=== PATIENT | female | born 1935 | race Caucasian/White ===

== ENCOUNTER → 2016-11-11 | Outpatient (CLI) | payer MEDICARE ==
[~2016-11-11] MED LIST: ALPR0.25 PO; AZIT-21 PO; Amlodipine Besylate PO; BENZ200C25 PO; CHOL3000 PO; CHOL40002 PO; CNDS16T PO; FERR-57 PO; FERR-84 PO; FLUT1DIS26 IH; FLUT1DIS26 INH; IRON PO; LEVO100T46 PO; LEVO150T PO; LEVO150T6 PO; LOSA100T28 PO; LOSA100T7 PO; METO25TA2 PO; NAPR220C11 PO; OMEP20CA12 PO; PARO20TA4 PO; PARO20TA57 PO; PRD20T PO; Paroxetine Hcl PO
--- NOTE | 2016-11-11 13:23 | Diagnostic Imaging Report ---
INDICATION: Difficulty breathing for the last six months, history of COPD. COMPARISON STUDY: Chest from 05/23/2015. FINDINGS: Frontal and lateral views of the chest demonstrate the lungs to be hyperinflated. Interstitial markings remain prominent. No focal infiltrates are present. Heart size and vascularity are normal. There is some calcification of the aorta. IMPRESSION: COPD with no focal findings. Dictated by: Dictated on workstation # [id number]
== END ==
LOC: RAD 10:45
PROVIDERS: ATTEND Internal Medicine Critical Care Medicine
DX: J44.9 Chronic obstructive pulmonary disease, unspecified (principal)
CPT/HCPCS: 71020

== ENCOUNTER → 2016-11-26 | Outpatient (CLI) | payer MEDICARE ==
[~2016-11-26] MED LIST changes: +RT-ALBUTEROL SULF 2.5 MG/3 ML PRE-MIX VIAL IH ONE
== END ==
LOC: RT 09:13
PROVIDERS: ATTEND Internal Medicine Critical Care Medicine
DX: J44.9 Chronic obstructive pulmonary disease, unspecified (principal)
CPT/HCPCS: 94060; 94640; 94726; 94729

== ENCOUNTER 2016-12-09 09:45 | Outpatient (RCR) | payer MEDICARE ==
[~2016-12-09 09:45] MED LIST changes: -RT-ALBUTEROL SULF 2.5 MG/3 ML PRE-MIX VIAL IH ONE
== END 2016-12-09 14:26 | disposition home or self-care (01) ==
PROVIDERS: ATTEND Internal Medicine
DX: R53.1 Weakness (principal)

== ENCOUNTER → 2017-01-06 | Outpatient (CLI) | payer MEDICARE ==
--- NOTE | 2017-01-06 17:14 | Diagnostic Imaging Report ---
Bilateral screening mammogram The current study was also evaluated with a Computer Aided Detection (CAD) system. Indication: Screening. No current complaints stated on the questionnaire. COMPARISON: 01/06/16 Findings: The breasts are composed of heterogeneously dense parenchyma which may decrease mammographic sensitivity. Benign-appearing calcifications are seen. Allowing for technique and positional differences, no suspicious change is seen. IMPRESSION: No significant change. ACR BI-RADS Category 2: Benign findings. Result letter will be mailed to the patient. Note: At least 10% of breast cancer is not imaged by mammography. Dictated by: Dictated on workstation # [id number]
== END ==
LOC: RAD 09:51
PROVIDERS: ATTEND Internal Medicine
DX: Z12.31 Encounter for screening mammogram for malignant neoplasm of breast (principal)
CPT/HCPCS: 77067

== ENCOUNTER → 2017-03-03 | Outpatient (CLI) | payer MEDICARE ==
[~2017-03-03] MED LIST changes: +ALPR0.254 PO; +CHOL40003 PO; +UMEC62.5 IH
[2017-03-03 10:28] LABS: BASOPHILS # (AUTO) 0.1 10^3/uL (0.0-0.1); BASOPHILS % (AUTO) 1 % (0-10); EOSINOPHILS # (AUTO) 0.1 10^3/uL (0.0-0.3); EOSINOPHILS % (AUTO) 2 % (0-10); LYMPHOCYTES # (AUTO) 1.8 X 10^3 (1.0-4.0); LYMPHOCYTES % (AUTO) 32 % (12-44); MEAN CORPUSCULAR HEMOGLOBIN 30 PG (25-34); MEAN CORPUSCULAR HGB CONC 33 G/DL (32-36); MEAN CORPUSCULAR VOLUME 88 FL (80-99); MEAN PLATELET VOLUME 9.3 FL (7.4-10.4); MONOCYTES # (AUTO) 0.6 X 10^3 (0.0-1.0); MONOCYTES % (AUTO) 10 % (0-12); NEUTROPHILS # (AUTO) 3.2 X 10^3 (1.8-7.8); NEUTROPHILS % (AUTO) 55 % (42-75); PLATELET COUNT 266 10^3/uL (130-400); RED BLOOD COUNT 4.38 10^6/uL (4.35-5.85); RED CELL DISTRIBUTION WIDTH 13.9 % (10.0-14.5); WHITE BLOOD COUNT 5.7 10^3/uL (4.3-11.0)
[2017-03-03 11:03] LABS: ALANINE AMINOTRANSFERASE 7 U/L (0-55); ALBUMIN 3.7 GM/DL (3.2-4.5); ANION GAP 5 MMOL/L (5-14); ASPARTATE AMINO TRANSFERASE 13 U/L (5-34); BILIRUBIN,TOTAL 0.7 MG/DL (0.1-1.0); BLOOD UREA NITROGEN 12 MG/DL (7-18); BUN/CREATININE RATIO 17; CALCIUM 9.1 MG/DL (8.5-10.1); CARBON DIOXIDE 28 MMOL/L (21-32); CHLORIDE 98 MMOL/L (98-107); CREATININE SERUM 0.71 MG/DL (0.60-1.30); GFR ESTIMATED > 60; GLUCOSE 88 MG/DL (70-105); POTASSIUM 4.6 MMOL/L (3.6-5.0); SODIUM 131 MMOL/L (135-145); TOTAL PROTEIN 6.4 GM/DL (6.4-8.2)
== END ==
LOC: ONC 10:01
PROVIDERS: ATTEND Internal Medicine Hematology & Oncology
DX: D50.9 Iron deficiency anemia, unspecified (principal)
CPT/HCPCS: 36415; 80053; 82728; 85025; 99213

== ENCOUNTER 2017-04-12 05:48 | Outpatient (CLI) | payer MEDICARE ==
[~2017-04-12] VITALS: Ht 167.6 cm; Wt 77.6 kg
[~2017-04-12 05:48] MED LIST changes: -ALPR0.254 PO; -CHOL40003 PO; -UMEC62.5 IH
[2017-04-12] MEDS ORDERED: CHOL40003 PO (12:22)
[2017-04-12] MEDS ORDERED: ALPR0.254 PO (12:22)
[2017-04-12] MEDS ORDERED: UMEC62.5 IH (12:22)
== END 2017-04-12 12:26 ==
LOC: PREOP 05:48
PROVIDERS: ATTEND Internal Medicine
DX: Z01.818 Encounter for other preprocedural examination (principal); Z12.11 Encounter for screening for malignant neoplasm of colon

== ENCOUNTER 2017-04-15 09:26 | Day surgery (SDC) | payer MEDICARE ==
--- NOTE | 2017-04-12 07:53 | HISTORY AND PHYSICAL ---
DATE OF SERVICE: 04/15/2017 DATE OF ADMISSION: 04/15/2017 HISTORY OF PRESENT ILLNESS: The patient is an 81-year-old white female presented to the office on 04/07/2017 reporting a little over 2 month history of constipation which is unusual for her. She has had to go to using Senokot twice a day after MiraLax did not work for her. She has added mineral oil to this 2 teaspoons at bedtime and with this, she is able to have a soft stool every three or four days. She has had some mild abdominal distention without abdominal pain. Prior to laxatives her stools were hard. She has not noted any bright red blood per rectum, has noticed sometimes her stools have been darker. She last accomplished colonoscopy in 2001 that revealed no abnormalities. She has had several EGDs in the past, the last in 2013 that did not reveal significant pathology. She denies weight loss or change in appetite. This is confirmed by our scales which revealed that her weight was up 1.6 pounds from 3 months ago. FAMILY HISTORY: She is not aware of any family history for colon cancer. SOCIAL HISTORY: She reports no drinking history. Past smoking history: She is a never smoker. FAMILY HISTORY: Father at age 77 of complications of alcoholism and diabetes. Mother of natural causes at the age of 91. She had one sister at age 79 of breast cancer widely metastatic. PHYSICAL EXAMINATION: GENERAL: An elderly white female who did not appear to be in acute distress. She is articulate, well kempt, slightly anxious. VITAL SIGNS: Blood pressure initially 166/84, at the end of the interview down to 148/80. HEENT: Unremarkable. Sclerae nonicteric. No evidence for pallor is noted. CHEST: Clear. CARDIOVASCULAR: Regular rate and rhythm without murmur, S3 or S4. ABDOMEN: Soft, supple without mass, organomegaly or tenderness. Bowel sounds are positive. No bruits are noted. EXTREMITIES: Reveal no cyanosis, clubbing or edema. Blood tests were reviewed. TSH was normal 3 months ago as well as calcium level. She has chronic mild hyponatremia longstanding. In February sodium was 131. The remainder of her chemistry panel was normal with a calcium level of 9.1. Liver function studies were normal and the CBC was unremarkable as well. ASSESSMENT AND PLAN: New onset constipation, no medication change with unremarkable metabolic profile and CBC. We will proceed with diagnostic colonoscopy as it has been 15 years since her last colon. Pt. scheduled on 04/15/2017. Prep instructions with the Leon-prep kit were given and questions were answered. 25 minutes of direct care time was spent by myself in evaluation and review of her past medical record. Another 15 minutes of staff time spent going over prep instructions and setting up colonoscopy. Job ID: [id number] DocumentID: [id number] Dictated Date: 04/07/2017 17:51:36 Envelope Press Operator Date: 04/07/2017 18:46:20 Dictated By: GIULIANO GARCIA MD [facility]
[~2017-04-15] VITALS: Ht 167.6 cm; Wt 77.6 kg
[~2017-04-15 09:26] MED LIST changes: +ALPR0.254 PO; +CHOL40003 PO; +UMEC62.5 IH
[2017-04-15] MEDS ORDERED: 1/2 NS IV SOLUTION 1,000 ML IV ONE (09:27)
--- OUTSIDE RECORDS SUMMARY | 2017-04-15 09:30 | XMS REPORT | Continuity of Care Document ---
Author Author [facility] Organization [facility] Address Unknown Phone Unavailable Allergies Active Description Code Type Severity Reaction Onset Reported/Identified Relationship to Patient Clinical Status Yes No Known Drug Allergies [id number] Drug Allergy Unknown N/ A 10/29/2011 Medications Problems Date Dx Coded Attending Type Code Diagnosis Diagnosed By 10/29/2011 Ot 493.92 ASTHMA, UNSPECIFIED, W (ACUTE) EXACERBAT 10/29/2011 Ot 786.05 SHORTNESS OF BREATH 04/04/2012 Ot 280.9 IRON DEFIC ANEMIA NOS 04/04/2012 Ot 536.8 STOMACH FUNCTION DIS NEC 04/04/2012 Ot 553.3 DIAPHRAGMATIC HERNIA 04/04/2012 Ot 562.10 DIVERTICULOSIS COLON (W/O MENT OF HEMORR 07/03/2014 NIHARIKA CABRERA MD Ot 244.9 HYPOTHYROIDISM NOS 07/03/2014 NIHARIKA CABRERA MD Ot 276.1 HYPOSMOLALITY 07/03/2014 NIHARIKA CABRERA MD Ot 300.00 ANXIETY STATE NOS 07/03/2014 NIHARIKA CABRERA MD Ot 311 DEPRESSIVE DISORDER NEC 07/03/2014 NIHARIKA CABRERA MD Ot 401.0 MALIGNANT HYPERTENSION 07/03/2014 NIHARIKA CABRERA MD Ot 493.20 CHRONIC OBSTRUCTIVE ASTHMA, NOS 07/03/2014 NIHARIKA CABRERA MD Ot 530.81 ESOPHAGEAL REFLUX 07/03/2014 NIHARIKA CABRERA MD Ot 535.51 UNSPEC GASTRITIS GASTRODUODENITIS, W/ 07/03/2014 NIHARIKA CABRERA MD Ot 564.00 UNSPEC CONSTIPATION 07/03/2014 NIHARIKA CABRERA MD Ot 716.90 ARTHROPATHY NOS-UNSPEC 07/03/2014 NIHARIKA CABRERA MD Ot 780.60 FEVER, UNSPECIFIED 07/03/2014 NIHARIKA CABRERA MD Ot 785.0 TACHYCARDIA NOS 07/03/2014 SANDNESS MD, NIHARIKA M Ot E935.6 ADV EFF ANTIRHEUMATICS 07/03/2014 RICK PORTILLO, NIHARIKA M Ot V12.71 PERSONAL HISTORY OF PEPTIC ULCER DISEASE 07/31/2014 RICK PORTILLO, NIHARIKA M Ot 276.1 07/31/2014 RICK PORTILLO, NIHARIKA M Ot 401.9 07/31/2014 RICK PORTILLO, NIHARIKA M Ot 428.0 08/13/2014 RICK PORTILLO, NIHARIKA M Ot 276.1 08/13/2014 RICK PORTILLO, NIHARIKA M Ot 401.9 08/13/2014 RICK PORTILLO, NIHARIKA M Ot 428.0 08/24/2014 RICK PORTILLO, NIHARIKA M Ot 276.0 08/24/2014 RICK PORTILLO, NIHARIKA M Ot 401.9 08/24/2014 RICK PORTILLO, NIHARIKA M Ot 428.0 10/21/2014 RICK PORTILLO, NIHARIKA M Ot 276.0 10/21/2014 RICK PORTILLO, NIHARIKA M Ot 401.9 10/21/2014 RICK PORTILLO, NIHARIKA M Ot 428.0 01/22/2015 MEIR PORTILLO, ILANA A Ot V76.12 01/31/2015 MEIR PORTILLO, ILANA Olivas Ot V76.12 01/31/2015 NWAGWU, ISIDORE O FUND ACCOUNTING MANAGER Ot 244.9 01/31/2015 NWAGWU, ISIDORE O FUND ACCOUNTING MANAGER Ot 401.9 01/31/2015 NWAGWU, ISIDORE O FUND ACCOUNTING MANAGER Ot 443.9 01/31/2015 NWAGWU, ISIDORE O FUND ACCOUNTING MANAGER Ot 459.81 01/31/2015 NWAGWU, ISIDORE O FUND ACCOUNTING MANAGER Ot 496 02/06/2015 NWAGWU, ISIDORE O FUND ACCOUNTING MANAGER Ot 244.9 02/06/2015 NWAGWU, ISIDORE O FUND ACCOUNTING MANAGER Ot 401.9 02/06/2015 NWAGWU, ISIDORE O FUND ACCOUNTING MANAGER Ot 443.9 02/06/2015 NWAGWU, ISIDORE O FUND ACCOUNTING MANAGER Ot 459.81 02/06/2015 NWAGWU, ISIDORE O FUND ACCOUNTING MANAGER Ot 496 02/14/2015 JOSE PORTILLO, GIULIANO Maxwell Ot 459.81 02/14/2015 JOSE PORTILLO, GIULIANO Maxwell Ot 782.3 02/14/2015 GIULIANO GARCIA MD Ot V57.21 02/21/2015 NWAGWU, ISIDORE O FUND ACCOUNTING MANAGER Ot 244.9 02/21/2015 NWAGWU, ISIDORE O FUND ACCOUNTING MANAGER Ot 401.9 02/21/2015 NWAGWU, ISIDORE O FUND ACCOUNTING MANAGER Ot 443.9 02/21/2015 NWAGWU, ISIDORE O FUND ACCOUNTING MANAGER Ot 459.81 02/21/2015 NWAGWU, ISIDORE O FUND ACCOUNTING MANAGER Ot 496 03/11/2015 NUNO MUNROEP Ot 174.9 03/12/2015 PAULIE KINNEY N Ot 174.9 03/14/2015 JOSE PORTILLO, GIULIANO Maxwell Ot 459.81 VENOUS INSUFFICIENCY NOS 03/14/2015 GIULIANO GARCIA MD Ot 782.3 EDEMA 03/14/2015 GIULIANO GARCIA MD Ot V57.21 ENCOUNTER FOR OCCUPATIONAL THERAPY 03/26/2015 PAULIE KINNEY Ot 174.9 04/17/2015 PAULIE KINNEY Ot 174.9 05/24/2015 GIULIANO GARCIA MD Ot E03.9 HYPOTHYROIDISM, UNSPECIFIED 05/24/2015 GIULIANO GARCIA MD Ot E22.2 SYNDROME OF INAPPROPRIATE SECRETION OF A 05/24/2015 GIULIANO GARCIA MD Ot E86.0 DEHYDRATION 05/24/2015 GIULIANO GARCIA MD Ot F41.1 GENERALIZED ANXIETY DISORDER 05/24/2015 GIULIANO GARCIA MD Ot I10 ESSENTIAL (PRIMARY) HYPERTENSION 05/24/2015 GIULIANO GARCIA MD Ot K21.9 GASTRO-ESOPHAGEAL REFLUX DISEASE WITHOUT 05/24/2015 GIULIANO GARCIA MD Ot T43.205A ADVERSE EFFECT OF UNSPECIFIED ANTIDEPRES 01/08/2016 GIULIANO GARCIA MD Ot Z12.31 ENCNTR SCREEN MAMMOGRAM FOR MALIGNANT NE 01/09/2016 GIULIANO GARCIA MD Ot Z12.31 ENCNTR SCREEN MAMMOGRAM FOR MALIGNANT NE 01/28/2016 GIULIANO GARCIA MD Ot Z12.31 ENCNTR SCREEN MAMMOGRAM FOR MALIGNANT NE 03/08/2016 NUNO MUNROEP Ot D50.9 IRON DEFICIENCY ANEMIA, UNSPECIFIED 03/26/2016 NUNO MUNROEP Ot D50.9 IRON DEFICIENCY ANEMIA, UNSPECIFIED 04/05/2016 NUNO MUNROE 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 SYSTEMS Ot D50.9 IRON DEFICIENCY ANEMIA, UNSPECIFIED 11/15/2016 JOSE PORTILLO, GIULIANO Maxwell Ot R53.1 WEAKNESS 11/24/2016 MEIR PORTILLO, ILANA Olivas Ot V76.12 OTH SCREEN MAMMO-MALIGN NEOPLASM OF [place] 11/24/2016 NWAGWU, ISIDORE O FUND ACCOUNTING MANAGER Ot 244.9 HYPOTHYROIDISM NOS 11/24/2016 NWAGWU, ISIDORE O FUND ACCOUNTING MANAGER Ot 401.9 HYPERTENSION NOS 11/24/2016 NWAGWU, ISIDORE O FUND ACCOUNTING MANAGER Ot 443.9 PERIPH VASCULAR DIS NOS 11/24/2016 NWAGWU, ISIDORE O FUND ACCOUNTING MANAGER Ot 459.81 VENOUS INSUFFICIENCY NOS 11/24/2016 NWAGWU, ISIDORE O FUND ACCOUNTING MANAGER Ot 496 CHR AIRWAY OBSTRUCT NEC 11/24/2016 GREGORIAPAULIE CHAPA [place] Ot 174.9 MALIGN NEOPL BREAST NOS 11/24/2016 JOSE PORTILLO, GIULIANO Maxwell Ot Z12.31 ENCNTR SCREEN MAMMOGRAM FOR MALIGNANT NE 11/24/2016 NUNO MUNROE 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 Ot D50.9 IRON DEFICIENCY ANEMIA, UNSPECIFIED 11/24/2016 JOSE PORTILLO, GIULIANO Maxwell Ot R53.1 WEAKNESS 11/24/2016 YANN ARRIAZA DO Ot J44.9 CHRONIC OBSTRUCTIVE PULMONARY DISEASE, U 11/25/2016 Ot 233.0 11/25/2016 Ot 244.9 11/25/2016 Ot 733.90 11/25/2016 Ot V58.69 11/25/2016 Ot 233.0 CA IN SITU BREAST 11/25/2016 Ot V15.3 HX OF IRRADIATION 11/25/2016 Ot V45.89 POSTSURGICAL STATES NEC 11/25/2016 Ot V76.11 SCRN MAMMO-HIGH RISK PT, MALIGNANT NEOPL 11/25/2016 Ot 276.1 HYPOSMOLALITY 11/25/2016 Ot 285.9 ANEMIA NOS 11/25/2016 Ot 530.3 ESOPHAGEAL STRICTURE 11/25/2016 Ot 530.81 ESOPHAGEAL REFLUX 11/25/2016 Ot 585.3 CHRONIC KIDNEY DISEASE, STAGE III (MODER 11/25/2016 Ot V10.3 HX OF BREAST MALIGNANCY 11/25/2016 Ot V67.1 RADIOTHERAPY FOLLOW-UP 11/25/2016 Ot 280.9 IRON DEFIC ANEMIA NOS 11/25/2016 Ot 536.8 STOMACH FUNCTION DIS NEC 11/25/2016 Ot V72.84 EXAM PRE-OPERATIVE NOS 11/25/2016 Ot 782.3 EDEMA 11/25/2016 NIHARIKA CABRERA MD Ot V76.12 OTH SCREEN MAMMO-MALIGN NEOPLASM OF [place] 11/25/2016 PAULIE KINNEY N Ot 174.9 MALIGN NEOPL BREAST NOS 11/25/2016 PAULIE KINNEY N Ot 285.9 ANEMIA NOS 11/25/2016 NIHARIKA CABRERA MD Ot 272.4 HYPERLIPIDEMIA NEC/NOS 11/25/2016 NIHARIKA CABRERA MD Ot 790.29 OTHER ABNORMAL GLUCOSE 11/25/2016 PAULIE KINNEY N Ot 174.9 MALIGN NEOPL BREAST NOS 11/25/2016 GREGORIA PAULIE N Ot 285.9 ANEMIA NOS 11/25/2016 NIHARIKA CABRERA MD Ot V76.12 OTH SCREEN MAMMO-MALIGN NEOPLASM OF [place] 11/25/2016 NUNO MUNROE 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 SYSTEMS Ot 174.9 MALIGN NEOPL BREAST NOS 11/25/2016 NIHARIKA CABRERA MD Ot 276.1 HYPOSMOLALITY 11/25/2016 NIHARIKA CABRERA MD Ot 401.9 HYPERTENSION NOS 11/25/2016 NIHARIKA CABRERA MD Ot 428.0 CONGESTIVE HEART FAILURE NOS 11/25/2016 NIHARIKA CABRERA MD Ot 276.1 HYPOSMOLALITY 11/25/2016 NIHARIKA CABRERA MD Ot 401.9 HYPERTENSION NOS 11/25/2016 NIHARIKA CABRERA MD Ot 428.0 CONGESTIVE HEART FAILURE NOS 11/25/2016 NIHARIKA CABRERA MD Ot 276.0 HYPEROSMOLALITY 11/25/2016 NIHARIKA CABRERA MD Ot 401.9 HYPERTENSION NOS 11/25/2016 NIHARIKA CABRERA MD Ot 428.0 CONGESTIVE HEART FAILURE NOS 11/25/2016 ILANA WORLEY MD Ot V76.12 OTH SCREEN MAMMO-MALIGN NEOPLASM OF [place] 11/25/2016 NWAGWU, ISIDORE O FUND ACCOUNTING MANAGER Ot 244.9 HYPOTHYROIDISM NOS 11/25/2016 NWMAYOWAleshia ISIDORE O FUND ACCOUNTING MANAGER Ot 401.9 HYPERTENSION NOS 11/25/2016 NWAGWU, ISIDORE O FUND ACCOUNTING MANAGER Ot 443.9 PERIPH VASCULAR DIS NOS 11/25/2016 NWAGWU, ISIDORE O FUND ACCOUNTING MANAGER Ot 459.81 VENOUS INSUFFICIENCY NOS 11/25/2016 NWAGWU, ISIDORE O FUND ACCOUNTING MANAGER Ot 496 CHR AIRWAY OBSTRUCT NEC 11/25/2016 PAULIE KINNEY Ot 174.9 MALIGN NEOPL BREAST NOS 11/25/2016 JOSE PORTILLO, GIULIANO Maxwell Ot Z12.31 ENCNTR SCREEN MAMMOGRAM FOR MALIGNANT NE 11/25/2016 NUNO MUNROE Jorgito 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 SYSTEMS Ot D50.9 IRON DEFICIENCY ANEMIA, UNSPECIFIED 11/25/2016 GIULIANO GARCIA MD Ot R53.1 WEAKNESS 11/25/2016 GIULIANO GARCIA MD Ot Z12.31 ENCNTR SCREEN MAMMOGRAM FOR MALIGNANT NE 11/25/2016 YANN ARRIAZA DO Ot J44.9 CHRONIC OBSTRUCTIVE PULMONARY DISEASE, U 11/26/2016 Ot 233.0 11/26/2016 Ot 244.9 11/26/2016 Ot 733.90 11/26/2016 Ot V58.69 11/26/2016 Ot 233.0 CA IN SITU BREAST 11/26/2016 Ot V15.3 HX OF IRRADIATION 11/26/2016 Ot V45.89 POSTSURGICAL STATES NEC 11/26/2016 Ot V76.11 SCRN MAMMO-HIGH RISK PT, MALIGNANT NEOPL 11/26/2016 Ot 276.1 HYPOSMOLALITY 11/26/2016 Ot 285.9 ANEMIA NOS 11/26/2016 Ot 530.3 ESOPHAGEAL STRICTURE 11/26/2016 Ot 530.81 ESOPHAGEAL REFLUX 11/26/2016 Ot 585.3 CHRONIC KIDNEY DISEASE, STAGE III (MODER 11/26/2016 Ot V10.3 HX OF BREAST MALIGNANCY 11/26/2016 Ot V67.1 RADIOTHERAPY FOLLOW-UP 11/26/2016 Ot 280.9 IRON DEFIC ANEMIA NOS 11/26/2016 Ot 536.8 STOMACH FUNCTION DIS NEC 11/26/2016 Ot V72.84 EXAM PRE-OPERATIVE NOS 11/26/2016 Ot 782.3 EDEMA 11/26/2016 RICK PORTILLO, NIHARIKA Cota Ot V76.12 OTH SCREEN MAMMO-MALIGN NEOPLASM OF [place] 11/26/2016 GREGORIA, BOBAN N Ot 174.9 MALIGN NEOPL BREAST NOS 11/26/2016 PAULIE KINNEY N Ot 285.9 ANEMIA NOS 11/26/2016 NIHARIKA CABRERA MD Ot 272.4 HYPERLIPIDEMIA NEC/NOS 11/26/2016 NIHARIKA CABRERA MD Ot 790.29 OTHER ABNORMAL GLUCOSE 11/26/2016 PAULIE KINNEY N Ot 174.9 MALIGN NEOPL BREAST NOS 11/26/2016 PAULIE KINNEY N Ot 285.9 ANEMIA NOS 11/26/2016 NIHARIKA CABRERA MD Ot V76.12 OTH SCREEN MAMMO-MALIGN NEOPLASM OF [place] 11/26/2016 MUNROENUNO Bull Jorgito 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S Ot 174.9 MALIGN NEOPL BREAST NOS 11/26/2016 NIHARIKA CABRERA MD Ot 276.1 HYPOSMOLALITY 11/26/2016 NIHARIKA CABRERA MD Ot 401.9 HYPERTENSION NOS 11/26/2016 NIHARIKA CABRERA MD Ot 428.0 CONGESTIVE HEART FAILURE NOS 11/26/2016 NIHARIKA CABRERA MD Ot 276.1 HYPOSMOLALITY 11/26/2016 NIHARIKA CABRERA MD Ot 401.9 HYPERTENSION NOS 11/26/2016 NIHARIKA CABRERA MD Ot 428.0 CONGESTIVE HEART FAILURE NOS 11/26/2016 NIHARIKA CABRERA MD Ot 276.0 HYPEROSMOLALITY 11/26/2016 NIHARIKA CABRERA MD Ot 401.9 HYPERTENSION NOS 11/26/2016 NIHARIKA CABRERA MD Ot 428.0 CONGESTIVE HEART FAILURE NOS 11/26/2016 MEIR PORTILLO, ILANA Olivas Ot V76.12 OTH SCREEN MAMMO-MALIGN NEOPLASM OF [place]ER 11/26/2016 NWAGWU, ISIDORE O FUND ACCOUNTING MANAGER Ot 244.9 HYPOTHYROIDISM NOS 11/26/2016 NWAGWU, ISIDORE O FUND ACCOUNTING MANAGER Ot 401.9 HYPERTENSION NOS 11/26/2016 NWAGWU, ISIDORE O FUND ACCOUNTING MANAGER Ot 443.9 PERIPH VASCULAR DIS NOS 11/26/2016 NWAGWU, ISIDORE O FUND ACCOUNTING MANAGER Ot 459.81 VENOUS INSUFFICIENCY NOS 11/26/2016 NWAGWU, ISIDORE O FUND ACCOUNTING MANAGER Ot 496 CHR AIRWAY OBSTRUCT NEC 11/26/2016 DELIA KINNEYRIK N Ot 174.9 MALIGN NEOPL BREAST NOS 11/26/2016 GIULIANO GARCIA MD Ot Z12.31 ENCNTR SCREEN MAMMOGRAM FOR MALIGNANT NE 11/26/2016 NUNO MUNROE Ot D50.9 IRON DEFICIENCY ANEMIA, UNSPECIFIED 11/26/2016 JOSE PORTILLO, GIULIANO Maxwell Ot R53.1 WEAKNESS 11/26/2016 GIULIANO GARCIA MD Ot Z12.31 ENCNTR SCREEN MAMMOGRAM FOR MALIGNANT NE 11/26/2016 ARSALAN DOPRUDENCIOYANN M Ot J44.9 CHRONIC OBSTRUCTIVE PULMONARY DISEASE, U 11/29/2016 ARSALAN DO, YANN M Ot J44.9 CHRONIC OBSTRUCTIVE PULMONARY DISEASE, U 11/29/2016 ARSALAN DO, YANN M Ot J44.9 CHRONIC OBSTRUCTIVE PULMONARY DISEASE, U 11/29/2016 ARSALAN DOPRUDENCIOYANN M Ot J44.9 CHRONIC OBSTRUCTIVE PULMONARY DISEASE, U 11/29/2016 ARSALAN DO, YANN M Ot J44.9 CHRONIC OBSTRUCTIVE PULMONARY DISEASE, U 12/09/2016 GIULIANO GARCIA MD Ot R53.1 WEAKNESS 12/23/2016 ARSALAN DOPRUDENCIOYANN M Ot J44.9 CHRONIC OBSTRUCTIVE PULMONARY DISEASE, U 12/27/2016 ARSALAN DO, YANN M Ot J44.9 CHRONIC OBSTRUCTIVE PULMONARY DISEASE, U 12/30/2016 ARSALAN DO, YANN M Ot J44.9 CHRONIC OBSTRUCTIVE PULMONARY DISEASE, U 01/06/2017 GIULIANO GARCIA MD Ot Z12.31 ENCNTR SCREEN MAMMOGRAM FOR MALIGNANT NE 01/06/2017 GIULIANO GARCIA MD Ot Z12.31 ENCNTR SCREEN MAMMOGRAM FOR MALIGNANT NE 01/06/2017 GIULIANO GARCIA MD Ot Z12.31 ENCNTR SCREEN MAMMOGRAM FOR MALIGNANT NE 01/10/2017 YANN ARRIAZA DO M Ot J44.9 CHRONIC OBSTRUCTIVE PULMONARY DISEASE, U 01/12/2017 GIULIANO GARCIA MD Ot Z12.31 ENCNTR SCREEN MAMMOGRAM FOR MALIGNANT NE 01/13/2017 YANN ARRIAZA DO M Ot J44.9 CHRONIC OBSTRUCTIVE PULMONARY DISEASE, U 01/27/2017 GIULIANO GARCIA MD Ot Z12.31 ENCNTR SCREEN MAMMOGRAM FOR MALIGNANT NE 03/04/2017 PAULIE KINNEY Ot D50.9 IRON DEFICIENCY ANEMIA, UNSPECIFIED 03/23/2017 PAULIE KINNEY Ot D50.9 IRON DEFICIENCY ANEMIA, UNSPECIFIED 04/08/2017 PAULIE KINNEY Ot D50.9 IRON DEFICIENCY ANEMIA, UNSPECIFIED 04/12/2017 GIULIANO GARCIA MD Ot Z01.818 ENCOUNTER FOR OTHER PREPROCEDURAL EXAMIN 04/12/2017 GIULIANO GARCIA MD Ot Z12.11 ENCOUNTER FOR SCREENING FOR MALIGNANT NE Procedures Code Description Performed By Performed On 45.16 ESOPHAGOGASTRODUODENOSCOPY [EGD] W/CLOSE 06/26/2014 Results Encounters ACCT No. Visit Date/Time Discharge Status Pt. Type Provider Facility Loc./Unit Complaint [id number] 04/12/2017 05:48:00 2016 12:26:00 DIS Outpatient GIULIANO GARCIA MD [facility] PREOP DIAGNOSTIC COLONOSCOPY [id number] 03/03/2017 10:01:00 2016 23:59:59 CLS Outpatient PAULIE KINNEY [facility] ONC [id number] 01/06/2017 09:51:00 2016 23:59:59 CLS Outpatient GIULIANO GARCIA MD [facility] RAD SCREENING [id number] 12/09/2016 09:45:00 2016 14:26:00 DIS Outpatient GIULIANO GARCIA MD [facility] REHAB DECONDITIONING [id number] 12/06/2016 08:15:00 2016 23:59:59 CLS Preadmit GIULIANO GARCIA MD [facility] PULM COPD,DECONDTIONING [id number] 11/26/2016 09:13:00 2016 23:59:59 CLS Outpatient YANN ARRIAZA DO [facility] RT J44.9,R06.00 [id number] 11/11/2016 10:45:00 2016 23:59:59 CLS Outpatient YANN ARRIAZA DO [facility] RAD COPD,DYSPNEA [id number] 03/04/2016 09:34:00 2015 23:59:59 CLS Outpatient NUNO MUNROE [facility] ONC [id number] 01/06/2016 09:43:00 2015 23:59:59 CLS Outpatient GIULIANO GARCIA MD [facility] RAD SCREENING [id number] 05/23/2015 12:27:00 2014 12:53:00 DIS Inpatient GIULIANO GARCIA MD [facility] 4TH SYMPTOMATIC HYPONATREMIA [id number] 02/25/2015 08:43:00 2014 12:03:00 DIS Outpatient GIULIANO GARCIA MD [facility] REHAB VENOUS INSUFFICIENCY W LE EDEMA; COMPRESSION STOCK [id number] 03/06/2015 09:46:00 2014 23:59:59 CLS Outpatient DELIA KINNEYRIK Figueroa [facility] ONC [id number] 01/13/2015 12:58:00 2014 23:59:59 CLS Outpatient NWAGWULAURIE FUND ACCOUNTING MANAGER [facility] RAD PAD,COPD,HTN,HYPOTHYROID [id number] 01/02/2015 08:49:00 2014 23:59:59 CLS Outpatient ILANA WORLEY MD [facility] RAD SCREENING [id number] 07/22/2014 11:40:00 2013 23:59:59 CLS Outpatient NIHARIKA CABRERA MD [facility] HYPONATREMIA, HTN, CHF [id number] 07/15/2014 13:25:00 2013 23:59:59 CLS Outpatient NIHARIKA CABRERA MD [facility] YPONATREMIA, HTN, CHF [id number] 07/08/2014 09:30:00 2013 23:59:59 CLS Outpatient NIHARIKA CABRERA MD [facility] HYPONATREMIA, HTN, CHF [id number] 06/26/2014 10:36:00 2013 18:08:00 DIS Inpatient NIHARIKA CABRERA MD [facility] 4TH SYNCOPE HYPONATREMIA ABD PAIN NAUSEA [id number] 03/07/2014 10:16:00 2013 23:59:59 CLS Outpatient NUNO MUNROE [facility] ONC [id number] 12/31/2013 10:26:00 2013 23:59:59 CLS Outpatient NIHARIKA CABRERA MD [facility] RAD ROUTINE [id number] 04/19/2013 11:00:00 2012 23:59:59 CLS Outpatient PAULIE KINNEY [facility] ONC LAB [id number] 03/08/2013 10:35:00 2012 23:59:59 CLS Outpatient NIHARIKA CABRERA MD [facility] LAB [id number] 03/08/2013 10:17:00 2012 23:59:59 CLS Outpatient PAULIE KINNEY [facility] ONC [id number] 12/28/2012 10:47:00 2012 23:59:59 CLS Outpatient NIHARIKA CABRERA MD [facility] RAD SCREENING [id number] 04/15/2017 11:15:00 PEN Anali GARCIA MD, GIULIANO Maxwell [facility] ENDO DIAGNOSTIC [id number] 11/25/2016 12:05:00 Document Registration [id number] 10/09/2012 11:33:00 Document Registration [id number] 04/04/2012 07:26:00 Document Registration [id number] 04/03/2012 11:53:00 Document Registration [id number] 03/09/2012 09:38:00 Document Registration [id number] 12/27/2011 10:35:00 Document Registration [id number] 10/29/2011 09:14:00 Document Registration [id number] 05/23/2008 00:00:00 Document Registration
[2017-04-15] MEDS ORDERED: 1/2 NS IV SOLUTION 1,000 ML IV STA (09:35)
[2017-04-15 09:40] VITALS: BP 153/81
[2017-04-15] MEDS ORDERED: LIDOCAINE JELLY 2% (XYLOCAINE) 5 ML TUBE MM PRN (09:45)
--- NOTE | 2017-04-15 10:19 | Pre-Op Note & Conscious Sedat ---
Pre-Operative Progress Note H&P Reviewed The H&P was reviewed, patient examined and no changes noted. Date H&P Reviewed: Apr 15, 2017 Time H&P Reviewed: 10:19 Conscious Sedation Pre-Proced ASA Class: 2 Airway Mallampati Classification: (jena appropriate class) I. II. III, IV Lungs Heart ASA score ASA 1: a normal healthy patient ASA 2: a patient with a mild systemic disease (mid diabetes, controlled hypertension, obesity ASA 3: a patient with a severe systemic disease that limits activity (angina , COPD, prior Myocardial infarction) ASA 4: a patient with an incapacitating disease that is a constant threat to life (CHF, renal failure) ASA 5: a moribund patient not expected to survive 24 hrs. (ruptured aneurysm) ASA 6: a declared brain patient whose organs are being harvested. For emergent operations, add the letter E after the classification Grade 3 Sedation Plan: Analgesia, Amnesia, Plan communicated to team members, Discussed options with patient/fam, Discussed risks with patient/fam Note The patient is an appropriate candidate to undergo the planned procedure, sedation, and anesthesia. The patient immediately re-assessed prior to indication. GIULIANO GARCIA MD Apr 15, 2017 10:19
[2017-04-15] MEDS ORDERED: fentaNYL INJECTION 100 MCG/2 ML AMP ONE (10:51)
[2017-04-15] MEDS ORDERED: LIDOCAINE JELLY 2% (XYLOCAINE) 5 ML TUBE ONE (10:51)
[2017-04-15] MEDS ORDERED: MIDAZOLAM 2 MG/2 ML (VERSED) VIAL ONE ×2 (10:52)
[2017-04-15] MEDS: fentaNYL INJECTION 100 MCG/2 ML AMP IVP PRN ×2 (11:00→11:03)
[2017-04-15] MEDS: MIDAZOLAM 2 MG/2 ML (VERSED) VIAL IVP PRN ×2 (11:01→11:04)
[2017-04-15 11:50] VITALS: BP 155/81
[2017-04-15 12:15] VITALS: BP 157/78
[2017-04-15 12:35] VITALS: BP 157/78
--- NOTE | 2017-04-16 17:29 | OPERATIVE REPORT ---
DATE OF SERVICE: 04/15/2017 PROCEDURE: Colonoscopy. INDICATION: Colonoscopy is performed for evaluation of new onset constipation and left lower quadrant abdominal pain. DESCRIPTION OF PROCEDURE: The patient was placed in the left lateral decubitus position. Prior to undergoing colonoscopy, digital rectal evaluation was performed. Anal sphincter tone was normal and the perianal reflex was intact. No abnormalities noted on digital inspection of the anal canal or distal rectal vault. The colonoscope was then inserted into the rectum under direct visualization and advanced to the cecum. The cecum was identified by identification of the ileocecal valve and cecal strap. Photographic documentation was obtained. Careful inspection was made as the colonoscope was withdrawn. FINDINGS: There was no evidence for internal or external hemorrhoids and the rectum was unremarkable. Several small sigmoid diverticulum were present without evidence for diverticulitis. No other sigmoid colonic abnormalities were appreciated. The descending colon, splenic flexure, transverse colon, hepatic flexure, ascending colon and cecum were unremarkable. ASSESSMENT: Mild diverticular disease confined to the sigmoid colon was present with no evidence for diverticulitis. This is an otherwise normal colonoscopy to the cecum. The patient did not have an irritable bowel type response to air insufflation or colonic manipulation. For treatment at this point, advised she double her mineral oil to a teaspoon twice a day and take MiraLax b.i.d. If this is not effective, we will discuss Linzess if it is affordable on her health care plan. Job ID: [id number] DocumentID: [id number] Dictated Date: 04/16/2017 15:12:57 Clinical Professor Date: 04/16/2017 17:29:01 Dictated By: GIULIANO GARCIA MD
== END 2017-04-15 12:35 | disposition home or self-care (01) ==
LOC: ENDO 09:26
PROVIDERS: ATTEND Internal Medicine
DX: K57.30 Diverticulosis of large intestine without perforation or abscess without bleeding (principal); K59.00 Constipation, unspecified; R10.32 Left lower quadrant pain

== ENCOUNTER → 2018-01-12 | Outpatient (CLI) | payer MEDICARE ==
--- NOTE | 2018-01-12 10:34 | Diagnostic Imaging Report ---
INDICATION: Routine screening. Comparison is made with prior study from 01/06/2017 and 01/06/2016. 2-D and 3-D bilateral screening mammography was performed with CAD. Both breasts are heterogeneously dense, limiting the sensitivity of mammography. Benign-appearing parenchymal and vascular calcifications are identified bilaterally. No dominant mass or malignant appearing microcalcifications are seen. The axillae are unremarkable. IMPRESSION: BI-RADS category 2 No mammographic features suspicious for malignancy are identified. ACR BI-RADS Category 2: Benign findings. Result letter will be mailed to the patient. Note: At least 10% of breast cancer is not imaged by mammography. Dictated by: Dictated on workstation # [id number]
== END ==
LOC: RAD 08:39
PROVIDERS: ATTEND Internal Medicine
DX: Z12.31 Encounter for screening mammogram for malignant neoplasm of breast (principal)
CPT/HCPCS: 77067

== ENCOUNTER → 2018-03-02 | Outpatient (CLI) | payer MEDICARE ==
[2018-03-02 09:53] LABS: BASOPHILS % (AUTO) 0 % (0-10); EOSINOPHILS # (AUTO) 0.1 10^3/uL (0.0-0.3); EOSINOPHILS % (AUTO) 2 % (0-10); HEMATOCRIT 38 % (35-52); HEMOGLOBIN 12.7 G/DL (11.5-16.0); LYMPHOCYTES # (AUTO) 1.4 X 10^3 (1.0-4.0); LYMPHOCYTES % (AUTO) 31 % (12-44); MEAN CORPUSCULAR HEMOGLOBIN 29 PG (25-34); MEAN CORPUSCULAR HGB CONC 34 G/DL (32-36); MEAN CORPUSCULAR VOLUME 87 FL (80-99); MEAN PLATELET VOLUME 9.9 FL (7.4-10.4); MONOCYTES # (AUTO) 0.5 X 10^3 (0.0-1.0); MONOCYTES % (AUTO) 12 % (0-12); NEUTROPHILS # (AUTO) 2.6 X 10^3 (1.8-7.8); NEUTROPHILS % (AUTO) 55 % (42-75); PLATELET COUNT 224 10^3/uL (130-400); RED BLOOD COUNT 4.33 10^6/uL (4.35-5.85); RED CELL DISTRIBUTION WIDTH 13.6 % (10.0-14.5); WHITE BLOOD COUNT 4.6 10^3/uL (4.3-11.0)
[2018-03-02 10:14] LABS: ALANINE AMINOTRANSFERASE 11 U/L (0-55); ALBUMIN 3.6 GM/DL (3.2-4.5); ALKALINE PHOSPHATASE 72 U/L (40-136); BILIRUBIN,TOTAL 0.6 MG/DL (0.1-1.0); BUN/CREATININE RATIO 17; CARBON DIOXIDE 24 MMOL/L (21-32); CHLORIDE 98 MMOL/L (98-107); CREATININE SERUM 0.71 MG/DL (0.60-1.30); GFR ESTIMATED > 60; GLUCOSE 97 MG/DL (70-105); POTASSIUM 4.6 MMOL/L (3.6-5.0); SODIUM 129 MMOL/L (135-145); TOTAL PROTEIN 6.2 GM/DL (6.4-8.2)
== END ==
LOC: ONC 09:14
PROVIDERS: ATTEND Internal Medicine Hematology & Oncology
DX: D50.9 Iron deficiency anemia, unspecified (principal); Z86.000 Personal history of in-situ neoplasm of breast
CPT/HCPCS: 80053; 82728; 85025; 99213

== ENCOUNTER → 2019-01-16 | Outpatient (CLI) | payer MEDICARE ==
[~2019-01-16] MED LIST changes: -LOSA100T28 PO; +LOSA100T57 PO
--- NOTE | 2019-01-16 15:35 | Diagnostic Imaging Report ---
INDICATION: Motion artifact. TECHNIQUE: The patient returned and CC and MLO views of the right breast were obtained due to motion artifact. FINDINGS: Scattered parenchymal density throughout the right breast is seen. There are benign parenchymal and vascular calcifications identified. No mass or malignant appearing microcalcifications are seen. IMPRESSION: No mammographic features suspicious for malignancy are identified. ACR BI-RADS Category 2: Benign findings. Result letter will be mailed to the patient. Note: At least 10% of breast cancer is not imaged by mammography. Dictated by: Dictated on workstation # [id number]
== END ==
LOC: RAD 13:54
PROVIDERS: ATTEND Internal Medicine
DX: Z12.31 Encounter for screening mammogram for malignant neoplasm of breast (principal)

== ENCOUNTER → 2019-03-01 | Outpatient (CLI) | payer MEDICARE | LOC: ONC 09:02 | PROVIDERS: ATTEND Internal Medicine Hematology & Oncology | DX: D50.9 Iron deficiency anemia, unspecified (principal); Z86.000 Personal history of in-situ neoplasm of breast | CPT/HCPCS: 99213 ==

== ENCOUNTER → 2020-03-17 | Outpatient (CLI) | payer MEDICARE ==
[2020-03-17 09:06] LABS: BASOPHILS % (AUTO) 0 % (0-10); EOSINOPHILS # (AUTO) 0.1 10^3/uL (0.0-0.3); EOSINOPHILS % (AUTO) 1 % (0-10); HEMATOCRIT 39 % (35-52); HEMOGLOBIN 13.1 G/DL (11.5-16.0); LYMPHOCYTES # (AUTO) 1.9 X 10^3 (1.0-4.0); LYMPHOCYTES % (AUTO) 34 % (12-44); MEAN CORPUSCULAR HEMOGLOBIN 30 PG (25-34); MEAN CORPUSCULAR HGB CONC 34 G/DL (32-36); MEAN CORPUSCULAR VOLUME 90 FL (80-99); MONOCYTES # (AUTO) 0.5 X 10^3 (0.0-1.0); MONOCYTES % (AUTO) 9 % (0-12); NEUTROPHILS % (AUTO) 55 % (42-75); PLATELET COUNT 254 10^3/uL (130-400); RED CELL DISTRIBUTION WIDTH 13.7 % (10.0-14.5); WHITE BLOOD COUNT 5.5 10^3/uL (4.3-11.0)
[2020-03-17 09:29] LABS: ALANINE AMINOTRANSFERASE 9 U/L (0-55); ALBUMIN 3.8 GM/DL (3.2-4.5); ALKALINE PHOSPHATASE 88 U/L (40-136); BILIRUBIN,TOTAL 0.7 MG/DL (0.1-1.0); BUN/CREATININE RATIO 14; CALCIUM 8.9 MG/DL (8.5-10.1); CARBON DIOXIDE 25 MMOL/L (21-32); CHLORIDE 95 MMOL/L (98-107); CREATININE SERUM 0.69 MG/DL (0.60-1.30); GFR ESTIMATED > 60; GLUCOSE 101 MG/DL (70-105); POTASSIUM 4.5 MMOL/L (3.6-5.0); SODIUM 129 MMOL/L (135-145); TOTAL PROTEIN 6.8 GM/DL (6.4-8.2)
== END ==
LOC: ONC 08:47
PROVIDERS: ATTEND Internal Medicine Hematology & Oncology
DX: D05.11 Intraductal carcinoma in situ of right breast (principal); D50.0 Iron deficiency anemia secondary to blood loss (chronic); J44.9 Chronic obstructive pulmonary disease, unspecified; K21.9 Gastro-esophageal reflux disease without esophagitis
CPT/HCPCS: 80053; 82728; 85025; G0463; 99213

== ENCOUNTER → 2020-12-11 | Outpatient (CLI) | payer MEDICARE ==
[~2020-12-11] MED LIST changes: +ALPR.25T PO; -ALPR0.254 PO
--- NOTE | 2020-12-12 09:43 | Diagnostic Imaging Report ---
INDICATION: Routine screening. COMPARISON is made with prior mammograms 01/15/2019 and 01/12/2018. 2-D and 3-D bilateral screening mammography was performed with CAD. Both breasts are heterogeneously dense, limiting the sensitivity of mammography. There are in numerable skin lesions, many of which contain calcifications, limiting evaluation. Numerous calcifications are now seen in the medial left breast, which were not present on prior mammogram. It is conceivable that these could be dermal but additional views are recommended. Numerous calcifications in the inferior and inferior posterior right breast are also increased and again these likely are associated with skin lesions but additional views are recommended. No masses are seen. Axillae are unremarkable. IMPRESSION: Bilateral calcifications. While these most likely are associated with skin lesions and dermal, additional views are recommended for further evaluation. BI-RADS Category 0 ACR BI-RADS Category 0: Incomplete. (Needs additional imaging evaluation). Result letter will be mailed to the patient. Note: At least 10% of breast cancer is not imaged by mammography. Dictated by: Dictated on workstation # [id number]
== END ==
LOC: RAD 14:13
PROVIDERS: ATTEND Internal Medicine
DX: Z12.31 Encounter for screening mammogram for malignant neoplasm of breast (principal); R92.1 Mammographic calcification found on diagnostic imaging of breast
CPT/HCPCS: 77063; 77067

== ENCOUNTER → 2020-12-18 | Outpatient (CLI) | payer MEDICARE ==
--- NOTE | 2020-12-18 13:39 | Diagnostic Imaging Report ---
Indication: Bilateral breast calcifications. Patient presents for additional views. Correlation is made with screening study from 12/11/2020. Magnification CC and ML views were obtained bilateral breast. Skin markers were placed at areas of numerous skin lesions. Patient has very many skin lesions, likely seborrheic keratoses. These are all calcifications. This likely accounts for the calcifications noted on screening mammogram. All calcifications are likely dermal or epidermal. No definite intraparenchymal calcifications are seen although this study is limited due to the very extreme nature of the skin lesions. No mass is identified. IMPRESSION: BI-RADS Category 2 Bilateral breast calcifications likely are within innumerable skin lesions covering both breasts. Patient may return to routine annual screening mammography. ACR BI-RADS Category 2: Benign findings. Result letter will be mailed to the patient. Note: At least 10% of breast cancer is not imaged by mammography. Dictated by: Dictated on workstation # [id number]
== END ==
LOC: RAD 12:21
PROVIDERS: ATTEND Nurse Practitioner Adult Health
DX: R92.8 Other abnormal and inconclusive findings on diagnostic imaging of breast (principal)
CPT/HCPCS: 77066; G0279; 77062

== ENCOUNTER → 2021-03-17 | Outpatient (CLI) | payer MEDICARE ==
[2021-03-17 09:29] LABS: BASOPHILS % (AUTO) 1 % (0-10); EOSINOPHILS # (AUTO) 0.1 10^3/uL (0.0-0.3); EOSINOPHILS % (AUTO) 1 % (0-10); HEMATOCRIT 41 % (35-52); HEMOGLOBIN 13.2 g/dL (11.5-16.0); LYMPHOCYTES # (AUTO) 1.9 10^3/uL (1.0-4.0); LYMPHOCYTES % (AUTO) 30 % (12-44); MEAN CORPUSCULAR HEMOGLOBIN 30 pg (25-34); MEAN CORPUSCULAR HGB CONC 33 g/dL (32-36); MEAN CORPUSCULAR VOLUME 91 fL (80-99); MONOCYTES # (AUTO) 0.7 10^3/uL (0.0-1.0); MONOCYTES % (AUTO) 10 % (0-12); NEUTROPHILS # (AUTO) 3.6 10^3/uL (1.8-7.8); NEUTROPHILS % (AUTO) 58 % (42-75); PLATELET COUNT 266 10^3/uL (130-400); WHITE BLOOD COUNT 6.2 10^3/uL (4.3-11.0)
[2021-03-17 09:56] LABS: ALBUMIN 3.9 GM/DL (3.2-4.5); BILIRUBIN,TOTAL 0.7 MG/DL (0.1-1.0); CALCIUM 9.1 MG/DL (8.5-10.1); CREATININE SERUM 0.66 MG/DL (0.60-1.30); POTASSIUM 4.3 MMOL/L (3.6-5.0); TOTAL PROTEIN 6.8 GM/DL (6.4-8.2)
== END ==
LOC: ONC 09:23
PROVIDERS: ATTEND Internal Medicine Hematology & Oncology
DX: D05.11 Intraductal carcinoma in situ of right breast (principal); D50.9 Iron deficiency anemia, unspecified; K21.9 Gastro-esophageal reflux disease without esophagitis; J44.9 Chronic obstructive pulmonary disease, unspecified; K22.2 Esophageal obstruction; I10 Essential (primary) hypertension; E03.9 Hypothyroidism, unspecified; E66.9 Obesity, unspecified; Z92.3 Personal history of irradiation; Z90.11 Acquired absence of right breast and nipple
CPT/HCPCS: 80053; 82728; 85025; G0463; 99213

== ENCOUNTER 2021-09-18 07:52 | Observation (INO) | payer MEDICARE ==
[~2021-09-18] VITALS: Ht 167.6 cm; Wt 77.6 kg
--- NOTE | 2021-09-18 08:16 | ED Back Pain ---
General Chief Complaint: Back Problems Stated Complaint: BACK PAIN Nursing Triage Note: PT ARRIVES TO ER VIA EMS FROM HOME. PT REPORTS LIFTING A TRASH CAN APPROX 1 WEEK AGO THAT HAD A ROCK IN THE BOTTOM OF IT CAUSING HER TO STRAIN HER BACK. PT C/O CONTINUED LOWER BACK PAIN, RADIATES AROUND IN ABD. Source of Information: Patient Exam Limitations: No Limitations History of Present Illness Date Seen by Provider: Sep 18, 2021 Time Seen by Provider: 08:11 Initial Comments Patient is an 86-year-old female who presents to the emergency department with a chief complaint of low back pain that wraps around her right flank. Patient states that she bent over to lift up a heavy rock out of her trash can on Tuesday, 1 week ago. She states ever since then she has had low back pain low right flank pain and now low right lower quadrant pain. She denies nausea vomiting. She is not having diarrhea or black or bloody stools. In fact she states she is constipated. She had some leftover muscle relaxers that Dr. Pineda, her primary care physician had given her, she is taking them without any relief. She denies burning with urination, increased frequency or urgency. Moving makes the pain much worse. She did take some Tylenol yesterday. She has not taken any of her daily medications this morning and her blood pressure is quite high at 180/101. She does not think she can provide a urine sample at this time. She is not allergic to anything. No history of kidney stone. She states she was hardly able to get out of bed this morning secondary to the pain. She does walk with a walker. She denies any weakness in her legs or lower extremity numbness or loss of bowel or bladder function All other review of systems reviewed and negative except as stated. Location: Lumbar Spine (and right flank RLQ) Timing/Duration: 1 Week Severity: Moderate Pain/Injury Location: Abdomen (RLQ), Back (right flank) Radiation: Other (right lower abdomen) Method of Injury: Other (bent over to lift a heavy rock) Modifying Factors: Worse With Movement; Improves With Rest Associated Symptoms: muscle spasms Allergies and Home Medications Allergies Coded Allergies: No Known Drug Allergies (Unverified , 10/29/11) Patient Home Medication List Home Medication List Reviewed: Yes ALPRAZolam (Xanax Tablet) 0.25 Mg Tablet, 0.25 MG PO TID PRN for ANXIETY, (Reported) Entered as Reported by: DANA REYES on 04/12/17 1222 Cholecalciferol (Vitamin D3) (Vitamin D3) 4,000 Unit Capsule, 4,000 UNIT PO DAILY, (Reported) Entered as Reported by: DANA REYES on 04/12/17 1222 Fluticasone/Salmeterol (Advair 250-50 Diskus) 1 Each Blst.w.dev, 1 PUFF INH BID, (Reported) Entered as Reported by: AMMON HOWARD on 05/23/15 1450 Levothyroxine Sodium (Levothyroxine Sodium) 150 Mcg Tablet, 150 MCG PO DAILY, (Reported) Entered as Reported by: AMMON HOWARD on 05/23/15 1450 Losartan Potassium (Losartan Potassium) 100 Mg Tablet, 100 MG PO DAILY, (Reported) Entered as Reported by: AMMON HOWARD on 05/23/15 1450 Umeclidinium [place] (Incruse Ellipta) 62.5 Mcg Blst.w.dev, 62.5 MCG IH DAILY PRN for WHEEZING, (Reported) Entered as Reported by: DANA REYES on 04/12/17 1222 Review of Systems Constitutional: see HPI EENTM: no symptoms reported Respiratory: no symptoms reported Cardiovascular: no symptoms reported Gastrointestinal: RLQ Genitourinary: no symptoms reported : No Musculoskeletal: back pain Skin: no symptoms reported Psychiatric/Neurological: No Symptoms Reported All Other Systems Reviewed Negative Unless Noted: Yes Past Zpjsjnu-Smolkq-Tghtsa Hx Immunizations Up To Date Tetanus Booster (TDap): Unknown Seasonal Allergies Seasonal Allergies: No Past Medical History Lumpectomy Asthma, COPD Hypertension Reproductive Disorders: No Sexually Transmitted Disease: No HIV/AIDS: No Gastroesophageal Reflux, Chronic Constipation, Hiatal Hernia, Ulcer Arthritis Hypothyroidsim Loss of Vision: Denies Hearing Impairment: Denies Breast Anxiety Adverse Reaction/Blood Tranf: No Family Medical History Cataracts G8 SISTER Diabetes mellitus 19 FATHER Neoplasm G8 SISTER No Family History of: AIDS Abdominal aortic aneurysm Gulf's disease Alcoholism Alzheimer's disease Aphasia Arthritis Asthma Cancer of mouth Cardiovascular disease Colon cancer Completed stroke Congenital disease Congenital heart disease Coronary thrombosis Cystic fibrosis Deafness or hearing loss Dementia Drug abuse Dysphasia Fibrocystic disease of breast Gastroenteritis Glaucoma Headache disorder Hypercholesterolemia Hypertension Infertility Kidney disease Myocardial infarction Not obtainable due to adoption Osteoporosis Parkinson's disease Prostate cancer Psychosocial problem Respiratory disorder Seizure disorder Severe allergy Thyroid disease Tuberculosis Visual disorder Physical Exam Vital Signs Vital Signs - First Documented 09/18/21 07:53 Temp 36.4 Pulse 81 Resp 20 B/P (MAP) 186/83 (117) Pulse Ox 97 O2 Delivery Room Air Capillary Refill : Height, Weight, BMI Height: 5'6.00" Weight: 171lbs. 0.0oz. 77.825534xw; 24.00 BMI Method:Stated General Appearance: No Apparent Distress, WD/WN HEENT: PERRL/EOMI Cardiovascular: Regular Rate, Rhythm (81bpm ) Respiratory: Lungs Clear, Normal Breath Sounds, No Accessory Muscle Use, No Respiratory Distress Gastrointestinal: Soft, Tenderness (RLQ) Back: Normal Inspection, Other (tenderness ofver lower lumbar spine right low flank; no overlying rashes) Extremity: Normal Capillary Refill, Normal Inspection, Normal Range of Motion, Pedal Edema (2+) Neurologic/Psychiatric: Alert, Oriented x3, No Motor/Sensory Deficits, Normal Mood/Affect, seat cover installer II-XII Norm as Tested Skin: Normal Color, Warm/Dry, Other (no rashes) Progress/Results/Core Measures Results/Orders Lab Results Laboratory Tests Test 09/18/21 08:35 09/18/21 09:40 Range/Units White Blood Count 6.6 4.3-11.0 10^3/uL Red Blood Count 4.40 3.80-5.11 10^6/uL Hemoglobin 13.2 11.5-16.0 g/dL Hematocrit 40 35-52 % Mean Corpuscular Volume 90 80-99 fL Mean Corpuscular Hemoglobin 30 25-34 pg Mean Corpuscular Hemoglobin Concent 33 32-36 g/dL Red Cell Distribution Width 12.8 10.0-14.5 % Platelet Count 254 130-400 10^3/uL Mean Platelet Volume 9.7 9.0-12.2 fL Immature Granulocyte % (Auto) 1 % Neutrophils (%) (Auto) 74 42-75 % Lymphocytes (%) (Auto) 15 12-44 % Monocytes (%) (Auto) 9 0-12 % Eosinophils (%) (Auto) 1 0-10 % Basophils (%) (Auto) 1 0-10 % Neutrophils # (Auto) 4.8 1.8-7.8 10^3/uL Lymphocytes # (Auto) 1.0 1.0-4.0 10^3/uL Monocytes # (Auto) 0.6 0.0-1.0 10^3/uL Eosinophils # (Auto) 0.0 0.0-0.3 10^3/uL Basophils # (Auto) 0.0 0.0-0.1 10^3/uL Immature Granulocyte # (Auto) 0.0 0.0-0.1 10^3/uL Sodium Level 126 L 135-145 MMOL/L Potassium Level 4.0 3.6-5.0 MMOL/L Chloride Level 91 L 98-107 MMOL/L Carbon Dioxide Level 25 21-32 MMOL/L Anion Gap 10 5-14 MMOL/L Blood Urea Nitrogen 8 7-18 MG/DL Creatinine 0.62 0.60-1.30 MG/DL Estimat Glomerular Filtration Rate 86 BUN/Creatinine Ratio 13 Glucose Level 102 70-105 MG/DL Calcium Level 9.2 8.5-10.1 MG/DL Corrected Calcium 9.4 8.5-10.1 MG/DL Total Bilirubin 0.9 0.1-1.0 MG/DL Aspartate Amino Transf (AST/SGOT) 14 5-34 U/L Alanine Aminotransferase (ALT/SGPT) 10 0-55 U/L Alkaline Phosphatase 89 40-136 U/L C-Reactive Protein High Sensitivity 1.27 H 0.00-0.50 MG/DL Total Protein 6.9 6.4-8.2 GM/DL Albumin 3.8 3.2-4.5 GM/DL Urine Color YELLOW Urine Clarity CLEAR Urine pH 7.5 5-9 Urine Specific [place] 1.020 1.016-1.022 Urine Protein NEGATIVE NEGATIVE Urine Glucose (UA) NEGATIVE NEGATIVE Urine Ketones 1+ H NEGATIVE Urine Nitrite NEGATIVE NEGATIVE Urine Bilirubin NEGATIVE NEGATIVE Urine Urobilinogen 1.0 < = 1.0 MG/DL Urine Leukocyte Esterase NEGATIVE NEGATIVE Urine RBC (Auto) TRACE-I H NEGATIVE Urine RBC RARE /HPF Urine WBC NONE /HPF Urine Squamous Epithelial Cells RARE /HPF Urine Crystals PRESENT H /LPF Urine Amorphous Sediment MOD JESSICA PHOSPHATE H /LPF Urine Bacteria NEGATIVE /HPF Urine Casts NONE /LPF Urine Mucus NEGATIVE /LPF Urine Culture Indicated NO My Orders Orders - KATIE BARRERA MD Ed Iv/Invasive Line Start (09/18/21 08:21) Cbc With Automated Diff (09/18/21 08:21) Comprehensive Metabolic Panel (09/18/21 08:21) Ua Culture If Indicated (09/18/21 08:21) Hs C Reactive Protein (09/18/21 08:21) Naproxen Tablet (Naprosyn Tablet) (09/18/21 08:30) Lidocaine 4% Patch (Salonpas 4% Patch) (09/18/21 09:00) Ct Abdomen/Pelvis Wo (09/18/21 10:19) Fentanyl Inj (Sublimaze Injection) (09/18/21 10:30) Losartan Tablet (Cozaar Tablet) (09/18/21 11:30) Ed Admission (Communication) (09/18/21 11:29) Medications Given in ED Current Medications Medications Dose Ordered Sig/Trish Route Start Time Stop Time Status Last Admin Dose Admin Fentanyl Citrate 50 mcg ONCE ONCE IVP 09/18/21 10:30 09/18/21 10:31 DC 09/18/21 10:26 50 MCG Naproxen 250 mg ONCE ONCE PO 09/18/21 08:30 09/18/21 08:31 DC 09/18/21 08:30 250 MG Vital Signs/I&O 09/18/21 09/18/21 09/18/21 07:53 10:21 11:11 Temp 36.4 Pulse 81 82 92 Resp 20 18 18 B/P (MAP) 186/83 (117) 184/91 181/108 Pulse Ox 97 98 95 O2 Delivery Room Air Room Air Room Air Blood Pressure Mean: 117 Progress Progress Note #1: Time: 10:20 Progress Note Patient reevaluated after laboratory studies, she states that the naproxen and pain patch have not done anything really to alleviate her symptoms. She is asking for something little stronger. She remains point tender to the right lower quadrant. Not tachycardic, not febrile, no leukocytosis. Concerned with the very trace red blood cells in her urine that she may have a kidney stone. She also could be an unusual presentation for acute appendicitis. Even though this pain has been going on for a week. Will await CT results. Progress Note #2: Time: 11:17 Progress Note Acute appearing moderate T12 compression fracture. No retropulsed fragments. Patient is still without neurologic complaint. Daughter at the bedside requests admission for pain management and physical therapy. Discussed with Dr. Ramos, he is going to call me back. Diagnostic Imaging Diagonstic Imaging: CT Comments [facility] [place], [place] NAME: MARY CHAVEZ [facility] REC#: [id number] PT STATUS: REG ER : 1935 PHYSICIAN: KATIE BARRERA MD ADMIT DATE: 09/18/21/ER Draft Date of Exam:09/18/21 CT ABDOMEN/PELVIS WO PROCEDURE: CT abdomen and pelvis without contrast. TECHNIQUE: Multiple contiguous axial images were obtained through the abdomen and pelvis without the use of intravenous contrast. Auto Exposure Controls were utilized during the CT exam to meet ALARA standards for radiation dose reduction. INDICATION: Back pain, lifting injury. COMPARISON: None. FINDINGS: There is moderate height loss involving the T12 vertebral body, compatible with an acute compression fracture. There is no retropulsion. No paraspinous hematoma is identified. The lung bases are clear. The gallbladder, solid organs, and vascular structures are unremarkable. There is moderate constipation without obstruction. The uterus is enlarged, likely tax compliance representative of a fibroid. Please correlate with symptoms of postmenopausal bleeding. The urinary bladder is unremarkable. There is a cystic mass in the left adnexa measuring 3 cm. IMPRESSION: 1. Acute appearing T12 compression fracture. 2. Constipation. 3. Uterine enlargement and a cystic mass in the left adnexa. A nonemergent ultrasound is recommended for further evaluation. Please correlate with history of postmenopausal bleeding and/or pelvic pain. Dictated on workstation # [id number] Dict: 09/18/21 1100 Trans: 09/18/21 1104 [id number] Interpreted by: CARLOS GENAO Electronically signed by: Departure Communication (Admissions) Time/Spoke to Admitting Phy: 11:[address] Ramos Impression Primary Impression: T12 compression fracture Qualified Codes: S22.080A - Wedge compression fracture of T11-T12 vertebra, initial encounter for closed fracture Additional Impressions: Abdominal pain Qualified Codes: R10.31 - Right lower quadrant pain Hyponatremia Intractable back pain Disposition: ADMITTED INPATIENT Condition: Stable Admissions Decision to Admit Reason: Admit from ER (General) Decision to Admit/Date: Sep 18, 2021 Time/Decision to Admit Time: 11:42 Departure-Patient Inst. Referrals: GIULIANO PINEDA MD (PCP/Family) Primary Care Physician KATIE BARRERA MD Sep 18, 2021 08:16
[2021-09-18] MEDS ORDERED: NAPROXEN 250 MG (NAPROSYN) TABLET PO ONE (08:30)
[2021-09-18 08:56] LABS: BASOPHILS % (AUTO) 1 % (0-10); EOSINOPHILS % (AUTO) 1 % (0-10); HEMATOCRIT 40 % (35-52); HEMOGLOBIN 13.2 g/dL (11.5-16.0); LYMPHOCYTES % (AUTO) 15 % (12-44); MEAN CORPUSCULAR HEMOGLOBIN 30 pg (25-34); MEAN CORPUSCULAR HGB CONC 33 g/dL (32-36); MEAN CORPUSCULAR VOLUME 90 fL (80-99); MEAN PLATELET VOLUME 9.7 fL (9.0-12.2); MONOCYTES # (AUTO) 0.6 10^3/uL (0.0-1.0); MONOCYTES % (AUTO) 9 % (0-12); NEUTROPHILS # (AUTO) 4.8 10^3/uL (1.8-7.8); NEUTROPHILS % (AUTO) 74 % (42-75); PLATELET COUNT 254 10^3/uL (130-400); WHITE BLOOD COUNT 6.6 10^3/uL (4.3-11.0)
[2021-09-18 09:00] LABS: ALBUMIN 3.8 GM/DL (3.2-4.5)
[2021-09-18 09:01] LABS: CALCIUM 9.2 MG/DL (8.5-10.1)
[2021-09-18 09:02] LABS: TOTAL PROTEIN 6.9 GM/DL (6.4-8.2)
[2021-09-18 09:04] LABS: BILIRUBIN,TOTAL 0.9 MG/DL (0.1-1.0)
[2021-09-18 09:06] LABS: CREATININE SERUM 0.62 MG/DL (0.60-1.30)
[2021-09-18 09:47] LABS: BILIRUBIN,URINE NEGATIVE (NEGATIVE); CLARITY,URINE CLEAR; COLOR,URINE YELLOW; GLUCOSE, URINE (UA) NEGATIVE (NEGATIVE); KETONES,URINE 1+ (NEGATIVE); LEUKOCYTE ESTERASE ,URINE NEGATIVE (NEGATIVE); NITRITE,URINE NEGATIVE (NEGATIVE); PH,URINE 7.5 (5-9); PROTEIN,URINE NEGATIVE (NEGATIVE)
[2021-09-18] MEDS: LIDOCAINE 4% (SALONPAS) PATCH TOP SCH (09:53)
[2021-09-18 10:04] LABS: BACTERIA,URINE NEGATIVE /HPF; RBC,URINE RARE /HPF; SQUAMOUS EPITHELIAL CELL,UR RARE /HPF
[2021-09-18 10:05] LABS: AMORPHOUS SEDIMENT,UR MOD AMOR PHOSPHATE /LPF
[2021-09-18] MEDS ORDERED: fentaNYL INJ 100 MCG/2 ML AMP IVP ONE (10:30)
--- NOTE | 2021-09-18 11:04 | Diagnostic Imaging Report ---
PROCEDURE: CT abdomen and pelvis without contrast. TECHNIQUE: Multiple contiguous axial images were obtained through the abdomen and pelvis without the use of intravenous contrast. Auto Exposure Controls were utilized during the CT exam to meet ALARA standards for radiation dose reduction. INDICATION: Back pain, lifting injury. COMPARISON: None. FINDINGS: There is moderate height loss involving the T12 vertebral body, compatible with an acute compression fracture. There is no retropulsion. No paraspinous hematoma is identified. The lung bases are clear. The gallbladder, solid organs, and vascular structures are unremarkable. There is moderate constipation without obstruction. The uterus is enlarged, likely training representative of a fibroid. Please correlate with symptoms of postmenopausal bleeding. The urinary bladder is unremarkable. There is a cystic mass in the left adnexa measuring 3 cm. IMPRESSION: 1. Acute appearing T12 compression fracture. 2. Constipation. 3. Uterine enlargement and a cystic mass in the left adnexa. A nonemergent ultrasound is recommended for further evaluation. Please correlate with history of postmenopausal bleeding and/or pelvic pain. Dictated by: Dictated on workstation # [id number]
[2021-09-18] MEDS ORDERED: LOSARTAN 100 MG (COZAAR) TABLET PO ONE (11:30)
[2021-09-18] MEDS ORDERED: ONDANSETRON 4 MG/2 ML (SDV) Z0FRAN IV PRN (13:00)
[2021-09-18] MEDS ORDERED: ANTACID SUSP 30 ML UDC (MYLANTA) PO PRN (13:00)
[2021-09-18] MEDS ORDERED: ACETAMINOPHEN 325 MG TABLET PO PRN (13:00)
[2021-09-18] MEDS ORDERED: ONDANSETRON 4 MG (ZOFRAN) ORAL DISSOLVE TAB PO PRN (13:00)
[2021-09-18] MEDS ORDERED: polyethylene glycoL POWDER 17 GM (MIRALAX) PACK PO PRN (13:00)
[2021-09-18] MEDS ORDERED: fentaNYL INJ 100 MCG/2 ML AMP IVP PRN (13:00)
[2021-09-18 13:06] VITALS: BP 200/94
--- NOTE | 2021-09-18 13:27 | Occupational Therapy Eval ---
OT Evaluation-General/PLF Medical Diagnosis Admission Date Sep 18, 2021 at 11:30 Medical Diagnosis: abdominal pain, hyponatremia Onset Date: Sep 18, 2021 Therapy Diagnosis Therapy Diagnosis: decreased ADL status Height/Weight Height (Feet): 5 Height (Inches): 6.00 Weight (Pounds): 171 Weight (Ounces): 0.0 Precautions Precautions/Isolations: Fall Prevention, Standard Precautions Referral Physician: Rachel Referral Reason: Evaluation/Treatment Medical History Current History ED with Abdominal pain Social History Home: Single Level Current Living Status: Alone Entry Into Home: Stairs With Railing Steps Into Home: 2 ADL-Prior Level of Function SCALE: Activities may be completed with or without assistive devices. 9-Bnrzytzklj-oorxpot completes the activity by him/herself with no assistance from a helper. 5-Set-up or Clean-up Assistance-helper sets up or cleans up; patient completes activity. [place] assists only prior to or following the activity. 4-Supervision or Touching Assistance-helper provides verbal cues and/or touching/steadying and/or contact guard assistance as patient completes activity. Assistance may be provided throughout the activity or intermittently. 3-Partial/Moderate Assistance-helper does LESS THAN HALF the effort. Randlett lifts, holds or supports trunk or limbs, but provides less than half the effort. 2-Substantial/Maximal Assistance-helper does MORE THAN HALF the effort. [place] lifts or holds trunk or limbs and provides more than half the effort. 9-Kifphqzbo-gafxkg does ALL the effort. Patient does none of the effort to complete the activity. Or, the assistance of 2 or more helpers is required for the patient to complete the activity. If activity was not attempted, code reason: 7-Patient Refused. 9-Not Applicable-not attempted and the patient did not perform the activity before the current illness, exacerbation or injury. 10-Not Attempted due to Environmental Limitations-(lack of equipment, weather restraints, etc.). 88-Not Attempted due to Medical Conditions or Safety Concerns. ADL PLOF Comments Pt reports IND with ADLs and functional mobility at PLOF, has been using a walker for 1 week. Pt reports she does not don socks at PLOF, only wears slip on shoes. Self Care: Independent Functional Cognition: Independent DME/Equipment: Shower OT Current Status Subjective Pt in bed eating lunch, required encouragement to participate in OT evaluation at this time Mental Status/Objective Patient Orientation: Person, Place, Situation Current Upper Extremity ROM WFL Upper Extremity Coordination WFL Upper Extremity Strength WFL ADL-Treatment Eating (QC): 6 On/Off Footwear (QC): 1 Toileting Hygiene (QC): 4 (SBA) Other Treatments Pt in bed, transferred supine to sit EOB with SBA. OT donned socks as pt does n ot complete at OF. Pt transferred from EOB to [facility], SBA. Pt completed toileting, then transferred back to EOB and supine with SBA. Post tx, pt in bed, call light in reach and all needs met, eating lunch OT Ship Ceiler Goals Ship Ceiler Goals Time Frame: Sep 25, 2021 Eating (QC): 6 Oral Hygiene (QC): 6 Toileting Hygiene (QC): 6 Shower/Bathe Self (QC): 6 Upper Body Dressing (QC): 6 Lower Body Dressing (QC): 6 On/Off Footwear (QC): 6 (slip on shoes) Additional Goals: 1-Demonstrate ADL Tasks, 2-Verbalize Understanding, 3- ImproveStrength/Susan 1=Demonstrate adherence to instructed precautions during ADL tasks. 2=Patient will verbalize/demonstrate understanding of assistive d evices/modifications for ADL. 3=Patient will improve strength/tolerance for activity to enable patient to perform ADL's. OT Education/Plan Problem List/Assessment Assessment: Decreased Activ Tolerance, Decreased UE Strength, Impaired Funct Balance, Impaired I ADL's, Impaired Self-Care Skills Pt would benefit from short term skilled OT services in order to increase strength and activity tolerance, and increase independence with ADLs in order to maximize LOF for safe return home. Discharge Recommendations Plan/Recommendations: Continue POC Treatment Plan/Plan of Care Patient would benefit from OT for education, treatment and training to promote independence in ADL's, mobility, safety and/or upper extremity function for ADL's. Plan of Care: ADL Retraining, Functional Mobility, UE Funct Exercise/Act Treatment Duration: Sep 25, 2021 Frequency: 3 times per week (3-5 times per week) Estimated Hrs Per Day: .25 hour per day Rehab Potential: Fair Time/GCodes Start Time: 13:18 Stop Time: 13:28 Total Time Billed (hr/min): 10 Billed Treatment Time 1, DELTA CODY OT Sep 18, 2021 13:27
[2021-09-18] MEDS ORDERED: OMEP20CA18 PO (14:16)
[2021-09-18] MEDS ORDERED: TIZA-169 PO (14:18)
[2021-09-18] MEDS ORDERED: IRBE300T17 PO (14:20)
[2021-09-18] MEDS ORDERED: CHOL200014 PO (14:43)
[2021-09-18] MEDS ORDERED: FERR-84 PO (14:43)
[2021-09-18] MEDS ORDERED: ALPR0.254 PO (14:43)
[2021-09-18] MEDS ORDERED: VIT1CAPS44 PO (14:43)
[2021-09-18 15:41] VITALS: BP 160/84
[2021-09-18 19:12] VITALS: BP 174/88
[2021-09-18] MEDS ORDERED: hydrALAZINE (APESOLINE) 20 MG/ML VIAL IV PRN (21:30)
[2021-09-18] MEDS: SENNOSIDES 8.6 MG (SENOKOT) TAB PO SCH (21:34)
[2021-09-18] MEDS: DOCUSATE SODIUM 100 MG (COLACE) CAP PO SCH (21:34)
[2021-09-18] MEDS: MELATONIN 3 MG TABLET PO PRN (21:36)
--- NOTE | 2021-09-18 21:43 | History & Physical-Hospitalist ---
History of Present Illness HPI/Chief Complaint Claudia Quiroz is an 86 year old female with PMH HTN, GERD, anxiety, who presented with back pain. 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 The pain is in her lower back and side. She denies nausea and vomiting. She denies chest pain. She denies shortness of breath and cough. She denies fevers and chills. She has no history of fracture. Source: patient Exam Limitations: no limitations Date Seen 09/18/21 Time Seen by a Provider: 20:00 Attending Physician Cris Borja MD PCP Jef Pineda MD Referring Physician Date of Admission Sep 18, 2021 at 11:30 Home Medications & Allergies Home Medications Reviewed patient Home Medication Reconciliation performed by pharmacy medication reconciliations health technician and/or nursing. Patients Allergies have been reviewed. Allergies Allergies Coded Allergies No Known Drug Allergies (Unverified10/29/11) Past Erqjpbu-Gsjqoa-Hjnmkl Hx Patient Social History Tobacco Use?: No Smoking Status: Never a Smoker Use of E-Cig and/or Vaping dev: No Use of E-Cig and/or Vaping Miquel: Former User Substance use?: No Alcohol Use?: No Pt feels they are or have been: No Immunizations Up To Date Date of Influenza Vaccine: Apr 24, 2015 First/Initial COVID19 Vaccinat: MODERNA Second COVID19 Vaccination Cale: MODERNBrendon Hepatitis A: No Hepatitis B: No Date of Pneumonia Vaccine: Mar 25, 2012 Seasonal Allergies Seasonal Allergies: No Current Status Advance Directives: Yes Advance Directive Location: Home Communicates: Verbally Primary Language: [place] Islander Preferred Spoken Language: [place] Is interpretation needed?: No Sensory deficits: Hearing impairment Implanted or Applied Medical D: None Past Medical History Surgeries: Lumpectomy Asthma, COPD Hypertension Sexually Transmitted Disease: No HIV/AIDS: No Gastroesophageal Reflux, Chronic Constipation, Hiatal Hernia, Ulcer Arthritis Hypothyroidsim Loss of Vision: Denies Hearing Impairment: Denies Breast Anxiety Adverse Reaction/Blood Tranf: No Family Medical History Cataracts G8 SISTER Diabetes mellitus 19 FATHER Neoplasm G8 SISTER No Family History of: AIDS Abdominal aortic aneurysm [place]'s disease Alcoholism Alzheimer's disease Aphasia Arthritis Asthma Cancer of mouth Cardiovascular disease Colon cancer Completed stroke Congenital disease Congenital heart disease Coronary thrombosis Cystic fibrosis Deafness or hearing loss Dementia Drug abuse Dysphasia Fibrocystic disease of breast Gastroenteritis Glaucoma Headache disorder Hypercholesterolemia Hypertension Infertility Kidney disease Myocardial infarction Not obtainable due to adoption Osteoporosis Parkinson's disease Prostate cancer Psychosocial problem Respiratory disorder Seizure disorder Severe allergy Thyroid disease Tuberculosis Visual disorder Review of Systems Constitutional: no symptoms reported, see HPI Physical Exam Physical Exam Vital Signs Vital Signs - First Documented 09/18/21 07:53 Temp 36.4 Pulse 81 Resp 20 B/P (MAP) 186/83 (117) Pulse Ox 97 O2 Delivery Room Air Capillary Refill : Height, Weight, BMI Height: 5'6.00" Weight: 171lbs. 0.0oz. 77.094291ed; 24.02 BMI Method:Stated General Appearance: No Apparent Distress, WD/WN HEENT: PERRL/EOMI, Pharynx Normal Neck: Normal Inspection, Supple Respiratory: Lungs Clear, No Respiratory Distress Cardiovascular: Regular Rate, Rhythm, No Murmur Gastrointestinal: Normal Bowel Sounds, Non Tender, Soft Back: Normal Inspection, CVA Tenderness (R) Extremity: Normal Inspection, Non Tender Neurologic/Psychiatric: Alert, Normal Mood/Affect Skin: Normal Color, Warm/Dry Results Results/Procedures Labs Laboratory Tests 09/18/21 08:35 Patient resulted labs reviewed. Imaging: Reviewed Imaging Report Assessment/Plan Admission Diagnosis Vertebral compression fracture Admission Status: Observation Assessment and Plan Vertebral compression fracture Pain regimen PT/OT HTN Continue home meds IV Hydralazine as needed Hypothyroidism GERD Anxiety Continue home meds DVT prophylaxis: Lovenox Diagnosis/Problems Diagnosis/Problems (1) T12 compression fracture Status: Acute Qualifiers: Encounter type: initial encounter Qualified Codes: S22.080A - Wedge compression fracture of T11-T12 vertebra, initial encounter for closed fracture CRIS BORJA MD Sep 18, 2021 21:43
[2021-09-18] MEDS ORDERED: ALPRAZolam 0.25 MG (XANAX) TAB PO PRN (21:45)
[2021-09-18 23:35] VITALS: BP 126/59
[2021-09-19] MEDS: ENOXAPARIN 40 MG/0.4 ML (LOVENOX) SYR SC SCH ×2 (01:15→21:23)
[2021-09-19 04:00] VITALS: BP 177/84
[2021-09-19] MEDS: LEVOTHYROXINE 150 MCG (LEVOTHROID) TAB PO SCH (05:54)
[2021-09-19] MEDS: RT--FLUTICASONE/SALMETEROL 113-14 (AIRDUO RespiCLICK) IH SCH ×2 (07:51→22:23)
[2021-09-19 08:04] VITALS: BP 190/88
[2021-09-19] MEDS: SENNOSIDES 8.6 MG (SENOKOT) TAB PO SCH ×2 (08:16→21:30)
[2021-09-19] MEDS: PANTOPRAZOLE 20 MG TABLET (PROTONIX) PO SCH (08:16)
[2021-09-19] MEDS: amLODIPine 10 MG (NORVASC) TAB PO SCH (08:16)
[2021-09-19] MEDS: DOCUSATE SODIUM 100 MG (COLACE) CAP PO SCH ×2 (08:16→21:30)
[2021-09-19] MEDS: LOSARTAN 100 MG (COZAAR) TABLET PO SCH (08:16)
[2021-09-19] MEDS: LIDOCAINE 4% (SALONPAS) PATCH TOP SCH (08:17)
[2021-09-19 08:29] LABS: POTASSIUM 4.4 MMOL/L (3.6-5.0)
[2021-09-19 08:34] LABS: CREATININE SERUM 0.55 MG/DL (0.60-1.30)
--- NOTE | 2021-09-19 09:39 | Physical Therapy Evaluation ---
PT Evaluation-General Medical Diagnosis Admission Date Sep 18, 2021 at 11:30 Medical Diagnosis: abdominal pain, hyponatremia Onset Date: Sep 18, 2021 Therapy Diagnosis Therapy Diagnosis: debility/weakness Height/Weight Height (Feet): 5 Height (Inches): 6.00 Weight (Pounds): 171 Weight (Ounces): 0.0 Precautions Precautions/Isolations: Fall Prevention, Standard Precautions Referral Physician: Rachel Reason for Referral: Evaluation/Treatment Medical History Pertinent Medical History: COPD, HTN Current History EMS secondary to right flank pain after lifting a heavy rock Reviewed History: Yes Social History Home: Single Level Current Living Status: Alone Entry Into Home: Stairs With Railing PT Steps Into Home: 2 Prior Prior Level of Function SCALE: Activities may be completed with or without assistive devices. 4-Uspmefobrk-aejvgtv completes the activity by him/herself with no assistance from a helper. 5-Set-up or Clean-up Assistance-helper sets up or cleans up; patient completes activity. [place] assists only prior to or following the activity. 4-Supervision or Touching Assistance-helper provides verbal cues and/or touching/steadying and/or contact guard assistance as patient completes activity. Assistance may be provided throughout the activity or intermittently. 3-Partial/Moderate Assistance-helper does LESS THAN HALF the effort. [place] lifts, holds or supports trunk or limbs, but provides less than half the effort. 2-Substantial/Maximal Assistance-helper does MORE THAN HALF the effort. [place] lifts or holds trunk or limbs and provides more than half the effort. 9-Vfksakglb-uohvsh does ALL the effort. Patient does none of the effort to complete the activity. Or, the assistance of 2 or more helpers is required for the patient to complete the activity. If activity was not attempted, code reason: 7-Patient Refused. 9-Not Applicable-not attempted and the patient did not perform the activity before the current illness, exacerbation or injury. 10-Not Attempted due to Environmental Limitations-(lack of equipment, weather restraints, etc.). 88-Not Attempted due to Medical Conditions or Safety Concerns. Bed Mobility: 6 Transfers (B,C,W/C): 6 Gait: 6 Stairs: 6 Indoor Mobility (Ambulation): Independent Stairs: Independent Prior Devices Use: Walker PT Evaluation-Current Subjective Patient agrees to PT. Pain Numeric Pain Scale: 0-No Pain Location: No Pain Reported Objective Patient Orientation: Person, Time, Situation ROM/Strength ROM Lower Extremities bilateral LE WFL Strength Lower Extremities 4/5 grossly bilateral LE all planes Integumentary/Posture Bowel Incontinence: No Bladder Incontinence: No Posture WFL Neuromuscular (Tone, Coordination, Reflexes) grossly intact Sensory Vision: Functional Hearing: Impaired Transfers Roll Left to Right (QC): 4 Lying to Sitting/Side of Bed(Q: 4 Sit to Stand (QC): 4 Chair/Ffh-hu-Xhtgl Xfer(QC): 4 Toilet Transfer (QC): 4 SBA with all mobility Gait Does the Patient Walk?: Yes Mode of Locomotion: Walk Anticipated Mode of Locomotion: Walk Walk 10 feet (QC): 4 Walk 50 ft with 2 Turns(QC): 4 Walk 150 ft (QC): 4 Distance: 200' Gait Assistive Device: FWW Comments/Gait Description NBOS/shuffle gait sequence/SBA Balance Sitting Static: Normal Sitting Dynamic: Normal Standing Static: Normal Standing Dynamic: Normal Assessment/Needs 86 y.o. female, will be seen short term by skilled PT to address functional strength and mobility to ensure safe return to home at maximum LOF. Rehab Potential: Fair PT Cheesemaking Laborer Goals Cheesemaking Laborer Goals PT Cheesemaking Laborer Goals Time Frame: Sep 26, 2021 Roll Left & Right (QC): 6 Sit to Lying (QC): 6 Lying-Sitting on Side/Bed(QC): 6 Sit to Stand (QC): 6 Chair/Cza-ah-Gzgdj Xfer(QC): 6 Toilet Transfer (QC): 6 Walk 10 feet (QC): 6 Walk 50ft with 2 Turns (QC): 6 Walk 150 ft (QC): 6 PT Plan Problem List Problem List: Safety Treatment/Plan Treatment Plan: Continue Plan of Care Treatment Plan: Bed Mobility, Education, Functional Activity Susan, Functional Strength, Gait, Safety, Therapeutic Exercise, Transfers Treatment Duration: Sep 26, 2021 Frequency: 6 times per week Estimated Hrs Per Day: .5 hour per day Patient and/or Family Agrees t: Yes Time/GCodes Time In: 839 Time Out: 849 Total Billed Treatment Time: 10 Total Billed Treatment 1 visit EVModC 10 min SEVEN ALVAREZ PT Sep 19, 2021 09:39
--- NOTE | 2021-09-19 11:23 | Progress Note - Hospitalist ---
Subjective HPI/CC On Admission Date Seen by Provider: Sep 19, 2021 Time Seen by Provider: 09:45 Claudia Quiroz is an 86 year old female with PMH HTN, GERD, anxiety, who presented with back pain. 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 The pain is in her lower back and side. She denies nausea and vomiting. She denies chest pain. She denies shortness of breath and cough. She denies fevers and chills. She has no history of fracture. Subjective/Events-last exam She reports sore throat today. She also has a cough. She is not short of breath. She is not having fevers. She denies back pain at this time. Objective Exam Vital Signs Vital Signs Date Time Temp Pulse Resp B/P (MAP) Pulse Ox O2 Delivery O2 Flow Rate FiO2 09/19/21 08:04 36.6 78 24 190/88 (122) 96 Room Air Capillary Refill : General Appearance: No Apparent Distress, WD/WN HEENT: PERRL/EOMI, Pharyngeal Erythema Respiratory: Lungs Clear, No Respiratory Distress Cardiovascular: Regular Rate, Rhythm, No Murmur Gastrointestinal: Normal Bowel Sounds, Soft Extremity: Normal Inspection, No Pedal Edema Neurologic/Psychiatric: Alert, Normal Mood/Affect Results/Procedures Lab Laboratory Tests 09/19/21 08:12 Patient resulted labs reviewed. Imaging: Reviewed Imaging Report Assessment/Plan Assessment and Plan Assess & Plan/Chief Complaint Vertebral compression fracture Pain regimen PT/OT IRU evaluation Pharyngitis Phenol throat spray Robitussin cough syrup COVID negative HTN Continue Losartan Add Amlodipine IV Hydralazine as needed Hypothyroidism GERD Anxiety Continue home meds DVT prophylaxis: Lovenox Diagnosis/Problems Diagnosis/Problems (1) T12 compression fracture Status: Acute Qualifiers: Encounter type: initial encounter Qualified Codes: S22.080A - Wedge compre ssion fracture of T11-T12 vertebra, initial encounter for closed fracture (2) HTN (hypertension) Status: Acute Qualifiers: Hypertension type: primary hypertension Qualified Codes: I10 - Essential (primary) hypertension (3) Pharyngitis Status: Acute Qualifiers: Pharyngitis/tonsillitis etiology: unspecified etiology Qualified Codes: J02.9 - Acute pharyngitis, unspecified (4) Hyponatremia Status: Acute CRIS BORJA MD Sep 19, 2021 11:23
[2021-09-19] MEDS ORDERED: guaiFENesin/DM (ROBITUSSIN DM) 10 ML UDC PO PRN (11:30)
[2021-09-19 11:35] VITALS: BP 155/73
[2021-09-19] MEDS: CHLORASEPTIC SPRAY 177 ML LIQUID MC PRN ×3 (12:41→21:19)
[2021-09-19 15:51] VITALS: BP 176/84
[2021-09-19 19:34] VITALS: BP 142/67
[2021-09-19] MEDS: MELATONIN 3 MG TABLET PO PRN (21:20)
[2021-09-20] VITALS (7 sets, daily range): BP systolic 120–180; BP diastolic 64–99
[2021-09-20] MEDS: LEVOTHYROXINE 150 MCG (LEVOTHROID) TAB PO SCH (06:44)
[2021-09-20] MEDS: CHLORASEPTIC SPRAY 177 ML LIQUID MC PRN (06:48)
[2021-09-20] MEDS: RT--FLUTICASONE/SALMETEROL 113-14 (AIRDUO RespiCLICK) IH SCH ×2 (07:40→22:12)
[2021-09-20] MEDS: LIDOCAINE 4% (SALONPAS) PATCH TOP SCH (08:54)
[2021-09-20] MEDS: SENNOSIDES 8.6 MG (SENOKOT) TAB PO SCH ×2 (08:54→19:27)
[2021-09-20] MEDS: DOCUSATE SODIUM 100 MG (COLACE) CAP PO SCH ×2 (08:54→19:27)
[2021-09-20] MEDS: LOSARTAN 100 MG (COZAAR) TABLET PO SCH (08:54)
[2021-09-20] MEDS: amLODIPine 10 MG (NORVASC) TAB PO SCH (08:54)
[2021-09-20] MEDS: PANTOPRAZOLE 20 MG TABLET (PROTONIX) PO SCH (08:54)
--- NOTE | 2021-09-20 14:18 | Progress Note - Hospitalist ---
Subjective HPI/CC On Admission Date Seen by Provider: Sep 20, 2021 Time Seen by Provider: 10:30 Claudia Quiroz is an 86 year old female with PMH HTN, GERD, anxiety, who presented with back pain. 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 The pain is in her lower back and side. She denies nausea and vomiting. She denies chest pain. She denies shortness of breath and cough. She denies fevers and chills. She has no history of fracture. Subjective/Events-last exam She is in bed reading a book. She took a shower this morning. She had some back pain. She has trouble sitting up from laying down. She has no other complaints. Objective Exam Vital Signs Vital Signs Date Time Temp Pulse Resp B/P (MAP) Pulse Ox O2 Delivery O2 Flow Rate FiO2 09/20/21 11:28 36.1 93 20 143/76 (98) 96 Room Air Capillary Refill : General Appearance: No Apparent Distress Respiratory: Lungs Clear, No Respiratory Distress Cardiovascular: Regular Rate, Rhythm, No Murmur Gastrointestinal: Normal Bowel Sounds, Soft Extremity: Normal Inspection, No Pedal Edema Neurologic/Psychiatric: Alert, Normal Mood/Affect Skin: Normal Color, Warm/Dry Results/Procedures Lab Patient resulted labs reviewed. Imaging: Reviewed Imaging Report Assessment/Plan Assessment and Plan Assess & Plan/Chief Complaint Vertebral compression fracture Pain regimen PT/OT IRU evaluation Pharyngitis Improving Phenol throat spray Robitussin cough syrup COVID negative HTN Continue Losartan Started on Amlodipine Consider adding beta-ileana if hypertension persists IV Hydralazine as needed Hypothyroidism GERD Anxiety Continue home meds DVT prophylaxis: Lovenox Diagnosis/Problems Diagnosis/Problems (1) T12 compression fracture Status: Acute Qualifiers: Encounter type: initial encounter Qualified Codes: S22.080A - Wedge compression fracture of T11-T12 vertebra, initial encounter for closed fracture (2) HTN (hypertension) Status: Acute Qualifiers: Hypertension type: primary hypertension Qualified Codes: I10 - Essential (primary) hypertension (3) Pharyngitis Status: Acute Qualifiers: Pharyngitis/tonsillitis etiology: unspecified etiology Qualified Codes: J02.9 - Acute pharyngitis, unspecified (4) Hyponatremia Status: Acute CRIS BORJA MD Sep 20, 2021 14:18
[2021-09-20] MEDS: MELATONIN 3 MG TABLET PO PRN (21:02)
[2021-09-20] MEDS: ENOXAPARIN 40 MG/0.4 ML (LOVENOX) SYR SC SCH (21:02)
[2021-09-21] MEDS: LEVOTHYROXINE 150 MCG (LEVOTHROID) TAB PO SCH (05:31)
[2021-09-21 05:38] LABS: POTASSIUM 3.7 MMOL/L (3.6-5.0)
[2021-09-21 05:39] LABS: CALCIUM 8.9 MG/DL (8.5-10.1)
[2021-09-21 05:43] LABS: CREATININE SERUM 0.62 MG/DL (0.60-1.30)
[2021-09-21 07:33] VITALS: BP 177/84
[2021-09-21] MEDS: RT--FLUTICASONE/SALMETEROL 113-14 (AIRDUO RespiCLICK) IH SCH (07:51)
[2021-09-21] MEDS ORDERED: meTOproloL SUCCINATE 50 MG (TOPROL XL) TAB PO SCH (09:00)
[2021-09-21] MEDS: PANTOPRAZOLE 20 MG TABLET (PROTONIX) PO SCH (09:18)
[2021-09-21] MEDS: LOSARTAN 100 MG (COZAAR) TABLET PO SCH (09:18)
[2021-09-21] MEDS: LIDOCAINE 4% (SALONPAS) PATCH TOP SCH (09:18)
[2021-09-21] MEDS: amLODIPine 10 MG (NORVASC) TAB PO SCH (09:18)
[2021-09-21] MEDS: DOCUSATE SODIUM 100 MG (COLACE) CAP PO SCH (09:20)
[2021-09-21] MEDS: SENNOSIDES 8.6 MG (SENOKOT) TAB PO SCH (09:27)
--- NOTE | 2021-09-21 10:56 | Physical Therapy Daily Note ---
PT Daily Note-Current Subjective Patient presented laying in bed and agreed to participate in physical therapy. Mental Status Patient Orientation: Person, Place, Time, Situation Transfers SCALE: Activities may be completed with or without assistive devices. 6-Qzmffdtfzz-bavapcx completes the activity by him/herself with no assistance from a helper. 5-Set-up or Clean-up Assistance-helper sets up or cleans up; patient completes activity. [place] assists only prior to or following the activity. 4-Supervision or Touching Assistance-helper provides verbal cues and/or touching/steadying and/or contact guard assistance as patient completes activity. Assistance may be provided throughout the activity or intermittently. 3-Partial/Moderate Assistance-helper does LESS THAN HALF the effort. [place] lifts, holds or supports trunk or limbs, but provides less than half the effort. 2-Substantial/Maximal Assistance-helper does MORE THAN HALF the effort. [place] lifts or holds trunk or limbs and provides more than half the effort. 6-Brfzjmryc-cstmmq does ALL the effort. Patient does none of the effort to complete the activity. Or, the assistance of 2 or more helpers is required for the patient to complete the activity. If activity was not attempted, code reason: 7-Patient Refused. 9-Not Applicable-not attempted and the patient did not perform the activity before the current illness, exacerbation or injury. 10-Not Attempted due to Environmental Limitations-(lack of equipment, weather restraints, etc.). 88-Not Attempted due to Medical Conditions or Safety Concerns. Sit to Lying (QC): 6 Lying to Sitting/Side of Bed(Q: 6 Sit to Stand (QC): 4 Toilet Transfer (QC): 4 Patient is independent for bed mobility but required CGA for sit to stand and toilet transfer. Gait Training Does the Patient Walk?: Yes Distance: 200' Walk 10 feet (QC): 4 Walk 50 ft with 2 Turns(QC): 4 Walk 150 ft (QC): 4 Gait Assistive Device: FWW Patient ambulated with CGA for 200' with FWW. Patient ambulates with shuffled gait and flexed trunk. Assessment Patient performed toileting and ambulation during therapy session. Patient reported fatigue after ambulation and requested to go back to bed. Patient is C GA for all transfers and independent for bed mobility. PT Cupola Liner Goals [facility]it[facility] Goals PT Cupola Liner Goals Time Frame: Sep 26, 2021 Roll Left & Right (QC): 6 Sit to Lying (QC): 6 Lying-Sitting on Side/Bed(QC): 6 Sit to Stand (QC): 6 Chair/Yxz-be-Epaoz Xfer(QC): 6 Toilet Transfer (QC): 6 Walk 10 feet (QC): 6 Walk 50ft with 2 Turns (QC): 6 Walk 150 ft (QC): 6 PT Plan Problem List Problem List: Activity Tolerance, Functional Strength, Safety, Balance, Gait, Transfer, ROM Treatment/Plan Treatment Plan: Continue Plan of Care Treatment Plan: Bed Mobility, Education, Functional Activity Susan, Functional Strength, Gait, Safety, Therapeutic Exercise, Transfers Treatment Duration: Sep 26, 2021 Frequency: 6 times per week Estimated Hrs Per Day: .5 hour per day Patient and/or Family Agrees t: Yes Time/GCodes Time In: 951 Time Out: 1004 Total Billed Treatment Time: 13 Total Billed Treatment 1 Visit FA 13 min SEVEN ALVAREZ PT Sep 21, 2021 10:56
[2021-09-21] MEDS ORDERED: AMLO-251 PO (11:19)
[2021-09-21] MEDS ORDERED: METO50TA7 PO (11:19)
--- NOTE | 2021-09-21 11:27 | Discharge Summary ---
Discharge Summary Reconcile Patient Problems Problems Reviewed?: Yes Instructions for Patient Via [facility] Hypertension Diagnostics, Assessment/Instructions Take medications as prescribed. Follow up with Dr. Pineda. Return with worsening pain, weakness, or if you feel like you are getting worse. Physician to follow Patient: Edwin Discharge Diet for Home: Low Sodium Diet Hospital Course Date of Admission: Sep 18, 2021 at 11:30 Admission Diagnosis : Vertebral compression fracture Family Physician/Provider: Jef Pineda MD Date of Discharge: 09/21/21 Discharge Diagnosis: Vertebral compression fracture Hospital Course: Claudia Quiroz is an 86 year old female who presented after injuring her back picking up a rock and was admitted with vertebral compression fracture. CT show ed acute compression fracture of T12. She required some pain medicine and improved. She worked with therapy and did well. Her course was complicated by hypertension. She was continued on her ARB. She was started on Amlodipine and Metoprolol due to persistent hypertension. She was discharged home with home health care for ongoing therapies. She should follow up with Dr. Pineda in a bout a week. She should follow up with Ortho for possible kyphoplasty. Labs and Pending Lab Test: Laboratory Tests 09/21/21 05:05: Sodium Level 131L, Potassium Level 3.7, Chloride Level 98, Carbon Dioxide Level 24, Anion Gap 9, Blood Urea Nitrogen 12, Creatinine 0.62, Estimat Glomerular Filtration Rate 86, BUN/Creatinine Ratio 19, Glucose Level 89, Calcium Level 8.9 Home Meds Active Amlodipine Besylate 10 Mg Tablet 10 Mg PO DAILY 30 Days Metoprolol Succinate 50 Mg Tab.er.24h 50 Mg PO DAILY 30 Days Reported Vitamin D3 (Cholecalciferol (Vitamin D3)) 50 Mcg Tablet 50 Mcg PO DAILY Iron (Ferrous Sulfate) 325 Mg Tablet 325 Mg PO DAILY Preservision Areds 2 Softgel (Vit C/E/Zn/Coppr/Lutein/Zeaxan) 1 Each Capsule 1 Each PO DAILY ALPRAZolam 0.25 Mg Tablet 0.125-0.25 Mg PO Q8H PRN Irbesartan 300 Mg Tablet 300 Mg PO DAILY Tizanidine HCl 2 Mg Tablet 2 Mg PO Q8H PRN Omeprazole 20 Mg Capsule.dr 20 Mg PO DAILY Advair 250-50 Diskus (Fluticasone/Salmeterol) 1 Each Blst.w.dev 1 Puff INH BID Levothyroxine Sodium 150 Mcg Tablet 150 Mcg PO DAILY Patient Allergies: Coded Allergies: No Known Drug Allergies (Unverified , 10/29/11) Height (Feet): 5 Height (Inches): 6.00 Weight (Pounds): 171 Weight (Ounces): 0.0 Home Health Need/Face to Face Date of Face to Face: Sep 21, 2021 Clinical Findings: Generalized weakness and fatigue, Instability, Muscle weakness I have seen Pt [id number]-[id number]: Yes Discharged To: Home Diagnosis/Conditions: Vertebral compression fracture Hypertension Advanced age Problems/Diagnosis/Condition: (1) Vertebral compression fracture (2) HTN (hypertension) (3) Advanced age Patient is Homebound due to: Ann fall risk due to instabilty, Muscle weakness Homebound Status Due to the above stated illness, injury or surgical procedure (medical condit ion or diagnosis) and associated clinical findings, the patient is homebound because of his/her inability to leave home except with aid of a supportive device and/or person AND leaving the home requires a considerable and taxing effort or is medically contraindicated. Pt req the following assistanc: Aid of another person, Walker Home Health Nursing Orders Home Health Services Order: Nursing Services, S[employer]-Evaluate & Treat, Physical Therapy-Evaluate & Treat Home Health Infusion Therapy Line Start Date: Sep 18, 2021 Therapy Orders Therapy Orders: OT (must have SN or PT order), Physical Therapy Therapy Specific Orders: Eval assistive deivces, Teach enviro modifications/safety, Gait training, Increase strength/endurance Certify Stmt I certify that this patient is under my care and that I, a nurse practitioner or a physician; a publisher assistant working with me, had a face to face encounter that - meets the physician face to face encounter requirements with this patient as dated. Discharge Physical Exam General: Alert, Cooperative HEENT: Atraumatic, EOMI, Mucous Memb Moist/[place] Lungs: Clear to Auscultation, Normal Air Movement Heart: Regular Rate, No Murmurs Abdomen: Normal Bowel Sounds, Soft, No Tenderness Extremities: No Edema, No Tenderness/Swelling Skin: No Rashes, No Significant Lesion Neuro: Normal Speech Psych/Mental Status: Mental Status NL, Mood NL CRIS BORJA MD Sep 21, 2021 11:26
[2021-09-21 11:36] VITALS: BP 117/71
[2021-09-21] MEDS ORDERED: OXYC5TAB PO (11:36)
--- NOTE | 2021-09-21 11:55 | Occupational Ther Daily Note ---
OT Current Status-Daily Note Subjective Pt in bed, states she is either going home or she has to go to a halfway. Pt appears anxious about both options. Mental Status/Objective Patient Orientation: Normal For Age ADL-Treatment Therapy Code Descriptions/Definitions Functional [place] Measure: 0=Not Assessed/NA 4=Minimal Assistance 1=Total Assistance 5=Supervision or Setup 2=Maximal Assistance 6=Modified [place] 3=Moderate Assistance 7=Complete IndependenceSCALE: Activities may be completed with or without assistive devices. 2-Oycptelwqz-nwhigtb completes the activity by him/herself with no assistance from a helper. 5-Set-up or Clean-up Assistance-helper sets up or cleans up; patient completes a ctivity. Worth assists only prior to or following the activity. 4-Supervision or Touching Assistance-helper provides verbal cues and/or touching/steadying and/or contact guard assistance as patient completes activity. Assistance may be provided throughout the activity or intermittently. 3-Partial/Moderate Assistance-helper does LESS THAN HALF the effort. Worth lifts, holds or supports trunk or limbs, but provides less than half the effort. 2-Substantial/Maximal Assistance-helper does MORE THAN HALF the effort. Worth lifts or holds trunk or limbs and provides more than half the effort. 7-Idffotrpm-cnvcpk does ALL the effort. Patient does none of the effort to complete the activity. Or, the assistance of 2 or more helpers is required for the patient to complete the activity. If activity was not attempted, code reason: 7-Patient Refused. 9-Not Applicable-not attempted and the patient did not perform the activity before the current illness, exacerbation or injury. 10-Not Attempted due to Environmental Limitations-(lack of equipment, weather restraints, etc.). 88-Not Attempted due to Medical Conditions or Safety Concerns. Other Treatment Pt laying in bed, agreeable to OT Tx. Pt expresses concerns about discharging home as she is unable to get out of a flat bed. OT encouraged pt to practice this scenario, flattening the bed and lowering bed rails to simulate home environment. Pt able to sit up from flat bed, then swing legs over to side of bed independently. Pt appeared slightly SOB after transfer. Pt able to transfer supine independently. OT educated pt on log roll technique as another way for pt to get out of bed, pt able to complete with SBA for sequencing of new technique. Pt transferred supine independently, OT positioned bed to comfort. OT asked pt what other concerns she has, pt indicates showering and getting in/out of tub. OT informed pt about home health options and options for a sponge bath until pt feels more steady. Pt indicates she has been taking sponge baths at home for some time. OT educated pt on SC vs bath bench for tub options, pt then indicates she has a walk in shower. Pt's home environment unknown at this time. Post tx, pt in bed, call light in reach and all needs met. Education OT Patient Education: Correct positioning, Energy conservation, Exercise program, Modified ADL techniques, Progress toward Goal/Update tx plan, Purpose of tx/functional activities, Rehab process Teaching Recipient: Patient Teaching Methods: Discussion Response to Teaching: Verbalize Understanding OT [facility] Goals [employer] Goals Time Frame: Sep 25, 2021 Eating (QC): 6 Oral Hygiene (QC): 6 Toileting Hygiene (QC): 6 Shower/Bathe Self (QC): 6 Upper Body Dressing (QC): 6 Lower Body Dressing (QC): 6 On/Off Footwear (QC): 6 (slip on shoes) Additional Goals: 1-Demonstrate ADL Tasks, 2-Verbalize Understanding, 3- ImproveStrength/Susan 1=Demonstrate adherence to instructed precautions during ADL tasks. 2=Patient will verbalize/demonstrate understanding of assistive devices/modifications for ADL. 3=Patient will improve strength/tolerance for activity to enable patient to perform ADL's. OT Education/Plan Problem List/Assessment Assessment: Decreased Activ Tolerance, Decreased UE Strength, Impaired Funct Balance, Impaired I ADL's, Impaired Self-Care Skills Pt would benefit from short term skilled OT services in order to increase strength and activity tolerance, and increase independence with ADLs in order to maximize LOF for safe return home. Discharge Recommendations Plan/Recommendations: Continue POC Therapy Discharge Recommendati: Post Acute OT (Home Health) Treatment Plan/Plan of Care Patient would benefit from OT for education, treatment and training to promote independence in ADL's, mobility, safety and/or upper extremity function for ADL's. Plan of Care: ADL Retraining, Functional Mobility, UE Funct Exercise/Act Treatment Duration: Sep 25, 2021 Frequency: 3 times per week (3-5 times per week) Estimated Hrs Per Day: .25 hour per day Rehab Potential: Fair Time/GCodes Start Time: 11:03 Stop Time: 11:14 Total Time Billed (hr/min): 11 Billed Treatment Time 1, FA DELTA MINOR OT Sep 21, 2021 11:55
[2021-09-21 15:50] VITALS: BP 122/65
== END 2021-09-21 18:23 | disposition home health service (06) ==
LOC: EDUNIT# 07:52 → ER 07:53 → 4TH 11:30
PROVIDERS: ADMIT Internal Medicine; ATTEND Internal Medicine
DX: S22.088A Other fracture of T11-T12 vertebra, initial encounter for closed fracture (principal); I10 Essential (primary) hypertension; E03.9 Hypothyroidism, unspecified; K21.9 Gastro-esophageal reflux disease without esophagitis; F41.9 Anxiety disorder, unspecified; J02.9 Acute pharyngitis, unspecified; E87.1 Hypo-osmolality and hyponatremia; X50.9XXA Other and unspecified overexertion or strenuous movements or postures, initial encounter; Z79.899 Other long term (current) drug therapy; Z87.891 Personal history of nicotine dependence; Z79.890 Hormone replacement therapy
CPT/HCPCS: 36415; 74176; 80048; 80053; 81000; 85025; 86141; 87636; 94640; 94760

== ENCOUNTER → 2021-12-16 | Outpatient (CLI) | payer MEDICARE ==
[~2021-12-16] MED LIST changes: +ALPR0.254 PO; +AMLO-251 PO; +CHOL200052 PO; +IRBE300T17 PO; +METO50TA7 PO; +OMEP20CA18 PO; +OXYC5TAB PO; +TIZA-169 PO; +VIT1CAPS44 PO
--- NOTE | 2021-12-16 13:32 | Diagnostic Imaging Report ---
INDICATION: Routine screening. Comparison is made with prior mammogram from 12/11/2020 and 01/15/2019. 2-D and 3-D bilateral screening mammography was performed with CAD. CAD is utilized. The current study was also evaluated with a Computer Aided Detection (CAD) system. Both breasts show marked parenchymal heterogeneity and increased density, limiting the sensitivity of mammography. There are numerous calcifications in both breasts, most appear to correspond to skin lesions. No mass or malignant-appearing microcalcifications are seen. Axillae are unremarkable. IMPRESSION: BI-RADS Category 2 No mammographic features suspicious for malignancy are identified. ACR BI-RADS Category 2: Benign findings. Result letter will be mailed to the patient. Note: At least 10% of breast cancer is not imaged by mammography. Dictated by: Dictated on workstation # [id number]
== END ==
LOC: RAD 11:00
PROVIDERS: ATTEND Internal Medicine
DX: Z12.31 Encounter for screening mammogram for malignant neoplasm of breast (principal)
CPT/HCPCS: 77063; 77067

== ENCOUNTER → 2023-01-12 | Outpatient (CLI) | payer MEDICARE ==
[~2023-01-12] MED LIST changes: -LOSA100T57 PO; +LOSA100T58 PO
--- NOTE | 2023-01-12 14:34 | Diagnostic Imaging Report ---
INDICATION: Hemoptysis and weight loss. PA and lateral views of the chest are obtained with comparison made to study of 11/11/2016 Overall heart size is within normal limits. There is bilateral air trapping. Interstitial markings have shown increase. There is suggestion of nodularity in the periphery of right midlung. There has been moderate compression of lower thoracic vertebral body. No pneumothorax or significant pleural fluid is seen. IMPRESSION: Probable worsening COPD however there is vague nodular structure in the lateral right midlung. CT is suggested to exclude possibility of developing mass. Dictated by: Dictated on workstation # [id number]
== END ==
LOC: RAD 13:53
PROVIDERS: ATTEND Internal Medicine
DX: R91.1 Solitary pulmonary nodule (principal); R04.2 Hemoptysis; R63.4 Abnormal weight loss
CPT/HCPCS: 71046

== ENCOUNTER → 2023-01-26 | Outpatient (CLI) | payer MEDICARE ==
[~2023-01-26] MED LIST changes: +HOLD METFORMIN - RECEIVED CONTRAST 20 ML VIAL IV SCH; +IOHEXOL 350 MG/ML 100 ML (OMNIPAQUE 350) VIAL IV ONE; +NS 100 ML (IVPB) BAG IV ONE
--- NOTE | 2023-01-26 16:17 | Diagnostic Imaging Report ---
INDICATION: Pulmonary nodule TECHNIQUE: Multiple contiguous axial images were obtained through the chest after administration of intravenous contrast. Auto Exposure Controls were utilized during the CT exam to meet ALARA standards for radiation dose reduction. There is no prior chest CT for comparison. Comparison made to the chest x-ray of 01/12/2023. There are no enlarged mediastinal or hilar nodes. There is mild cardiomegaly with extensive coronary calcifications. There are no enlarged axillary nodes. There is no pleural or pericardial fluid. Visualized portions of the upper abdomen show no acute finding. There is a T12 compression fracture of indeterminate age but possibly acute. Consider MRI for further evaluation. Lung windows show some biapical scarring. There is some patchy ill-defined infiltrate in the right lower lobe and right middle lobe, as well as in the inferior portion of the right upper lobe, compatible with pneumonitis. There is a 5 mm nodule in the posterior aspect of the left lower lobe (image 52 series 3). IMPRESSION: Patchy areas of infiltrate are seen in the right lung as above, suspicious for pneumonia. There is a small 5 mm nodule in the left lower lobe, this could be followed with a followup chest CT in 6 months if the patient is a high clinical risk. There is no adenopathy or pleural fluid. There are extensive coronary calcifications. Dictated by: Dictated on workstation # [id number]
== END ==
LOC: RAD 12:33
PROVIDERS: ATTEND Internal Medicine
DX: R91.8 Other nonspecific abnormal finding of lung field (principal)
CPT/HCPCS: 71260